=== PATIENT | male | born 1955 | race Caucasian/White ===

== ENCOUNTER → 2020-03-26 12:46 | Outpatient (BNVA) | payer OTHER, SELFPAY | PROVIDERS: Family Provider Nurse Practitioner; PCP Nurse Practitioner Family; Visit Provider Nurse Practitioner Family | DX: S80.02XA Contusion of left knee, initial encounter (principal); S89.92XA Unspecified injury of left lower leg, initial encounter; S79.912A Unspecified injury of left hip, initial encounter; S82.252A Displaced comminuted fracture of shaft of left tibia, initial encounter for closed fracture; X58.XXXA Exposure to other specified factors, initial encounter | CPT/HCPCS: 73502; 73552; 73562; 73590 ==

== ENCOUNTER 2020-03-28 13:23 | Outpatient (CLI) | payer OTHER, SELFPAY ==
--- NOTE | 2020-03-28 13:49 | CT_ITS ---
WS: [id number] NONCONTRAST CT OF THE LEFT KNEE WITH CORONAL AND SAGITTAL REFORMATTED IMAGES TECHNIQUE: Noncontrast CT of the left knee with coronal and sagittal reformatted images. CLINICAL INFORMATION: Tibial plateua fx COMPARISON: Radiograph March 26, 2020 DLP: 1232.[address] scans at [facility] use at least one of these dose optimization techniques: automat ed exposure control; mA and/or kV adjustment per patient size (includes targeted exams where dose is matched to clinical indication); or iterative reconstruction. FINDINGS: Again seen is the comminuted fracture involving the central and lateral tibial plateau extending to t he tibial spines. Depression of the tibial plateau fracture measuring approximately 3 mm. A few small fragments extend to the joint. Fibular head is normal in appearance. Moderate joint effusion. Additional small nondisplaced fracture involving the medial femoral condyle extending to the medial e picondyle. Nondisplaced fracture measures 2.1 x 2.0 CM. Patella appears normal. Additional tiny nondi splaced fracture involving the medial tibial plateau which does not appear to involve the articular s urface. Moderate suprapatellar effusion. CT/CT knee LT wo con* [id number] IMPRESSION: 1. Comminuted tibial plateau fracture extending from the tibial spines into th e lateral tibial plateau. 3 mm of depression. 2. A few small bony fragments extending slightly into the joint. 3. Additional nondisplaced 2.0 x 2.1 cm fracture involving the medial femoral condyle extending to the medial epicondyle. 4. Additional nondisplaced tiny fracture along the posterior tibial plateau no t involving the articular surface. 5. Moderate suprapatellar effusion.
== END 2020-03-28 13:24 | disposition home or self-care (01) ==
LOC: RADWPI 13:28
PROVIDERS: Family Provider Nurse Practitioner; PCP Nurse Practitioner Family; Visit Provider Orthopaedic Surgery
DX: S82.142B Displaced bicondylar fracture of left tibia, initial encounter for open fracture type I or II (principal); S72.435A Nondisplaced fracture of medial condyle of left femur, initial encounter for closed fracture; X58.XXXA Exposure to other specified factors, initial encounter; M25.462 Effusion, left knee
CPT/HCPCS: 73700

== ENCOUNTER 2020-03-28 14:41 | Outpatient (CLI) | payer OTHER, SELFPAY | END 2020-03-28 14:42 | disposition home or self-care (01) | LOC: SPT 14:42 | PROVIDERS: Family Provider Nurse Practitioner; PCP Nurse Practitioner Family; Visit Provider Orthopaedic Surgery | DX: Z46.89 Encounter for fitting and adjustment of other specified devices (principal); S82.142D Displaced bicondylar fracture of left tibia, subsequent encounter for closed fracture with routine healing; X58.XXXD Exposure to other specified factors, subsequent encounter | CPT/HCPCS: L1832 ==

== ENCOUNTER 2020-03-30 16:40 | Observation (INO) | payer OTHER, SELFPAY ==
[2020-03-29 16:59] VITALS: BMI 25.4
[2020-03-30] VITALS (24 sets, daily range): BP systolic 123–174; BP diastolic 69–96; PULSE 44–78; RESP 16–22; TEMP 36.3–37.1; O2SAT 92–97
--- NOTE | 2020-03-30 | XR_ITS ---
WS: [id number] C-ARM RADIOGRAPHS LEFT KNEE; 4 IMAGES HISTORY: ORIF LEFT KNEE COMPARISON: None available. Status post fixation proximal tibial plateau. Plate and screw fixation with fractures in good alignme nt. XR/XR knee LT 1-2V 75251 IMPRESSION: Status post ORIF tibial plateau fracture in good alignment.
--- NOTE | 2020-03-30 | SCC_ITS ---
Procedure Done: open reduction and internal fixation left lateral tibial plateau fracture with plate and screws 36.4 seconds of fluoroscopic guidance, for a cumulative dose of 1.75 mGy, was provided to Dr. Miranda by the radiology department. C-arm images of the LEFT knee were saved for the patient's permanent record. [facility]
--- NOTE | 2020-03-30 08:16 | W.PM.OPSUD ---
Surgery/Procedure H&P Update DATE OF PROCEDURE: March 30, 2020 DATE H&P PERFORMED: 03/28/20 H&P UPDATE INFORMATION: I have reviewed H&P completed within last 30 days PREOP DIAGNOSIS: Left lateral tibial plateau fracture PRIMARY INDICATION FOR PROCEDURE: Displaced and depressed left lateral tibial plateau fracture PLANNED PROCEDURE: Operation Date: 03/30/20 10:05 Proposed Procedures p ORIF Tibial Plateau 18235 S82.142A(Left) - Boston Miranda DO
--- NOTE | 2020-03-30 08:48 | ANES.PREANE2 ---
Pre-Anesthetic Assessment Pre-Anesthetic Assessment: Height/Weight: Height 1.8 m Weight 82.554 kg Preop Diagnosis: left lateral tibial plateau fracture Proposed Procedure: Operation Date: 03/30/20 10:05 Proposed Procedures p ORIF Tibial Plateau 76639 S82.142A(Left) - Boston Miranda DO Familial anesthetic complications: None Was Beta Fabian taken within 24 hours: N/A Social: Social History: Tobacco and No alcohol Exam: Pre-Anes Outpt Exam: alert, oriented x 3, clear to auscultation bilaterally and regular rate & rhythm Airway: Cervical ROM: WNL MP: 2 Dentition: False Additional comments: missing poor dentioin Pulmonary: Pulmonary: None reported CV/HEM: CV/HEM: None reported : : None reported Hepatic: Hepatic: None reported GI: GI: None reported Metabolic: Metabolic: None reported Musc/skel: Musc/skel: OA/DJD Comments: L knee Neuropsych: Neuropsych: None reported Anesthetic Plan: ASA status: 2 Anesthesia: General Risk of > 500 ml blood loss (7ml/kg in children): No PFSH Anesthesia PFSH: Medical History (Updated 03/29/20 @ 06:24 by Boston Miranda DO) Closed fracture of left tibial plateau Social History (Updated 03/28/20 @ 12:07 by Bhumi Larios LPN) Smoking and tobacco status: never smoked Alcohol intake: never 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
[2020-03-30] MEDS: sodium chloride 0.9% 1,000 ML 30 ML IV (09:18)
--- NOTE | 2020-03-30 09:40 | SUR.PREOP ---
DR ALEJANDRA INFORMED OF PT'S PULSE RATE. PT DENIES ANY SYMPTOMS.
[2020-03-30] MEDS: fentaNYL 50 mcg/mL INJ 2mL IVP ×2 (10:41→13:13)
--- NOTE | 2020-03-30 10:42 | SUR.PREOP ---
MEDICATED FOR LEG PAIN PER DR ALEJANDRA.
[2020-03-30] MEDS: cefUROXime 1,500 MG in sodium chloride 0.9% (plus) 50 ML 100 MG IV (11:32)
[2020-03-30] MEDS: lidocaine 1% INJ 20 mL SUBCUT (12:47)
--- NOTE | 2020-03-30 13:08 | SUR.PHASEI ---
1300 PATIENT TO PACU AT THIS TIME. RESTLESS, PATIENT REPOSITIONED, LEFT KNEE ELEVATED ON PILLOWS. FIRST ICE APPLIED. DRESSING TO LEFT KNEE, CDI WITH BRACE IN PLACE. PATIENT ON RA, SPO2 95%.
[2020-03-30] MEDS: morphine 4 mg/mL SDV 1 mL 2 MG IVP ×2 (13:21→13:25)
[2020-03-30] MEDS: HYDROmorphone 1 mg/mL INJ 1 mL 0.5 MG IVP (13:30)
--- NOTE | 2020-03-30 13:49 | SUR.PHASEI ---
4949 PATIENT TO OPS AT THIS TIME FROM OR. NO DISTRESS. PAIN IMPROVED. DENIES NAUSEA. TOLERATING ICE CHIPS. LEFT LEG ELEVATED, FIRST ICE IN PLACE.
--- NOTE | 2020-03-30 14:41 | SUR.PHASEII ---
PLAN OF CARE REVIEWED WITH PATIENT AND FAMILY.
--- NOTE | 2020-03-30 17:40 | SUR.PHASEII ---
1530 PATIENT TO [facility]. REPORT GIVEN TO NURSE AT BEDSIDE. PATIENT ASSISTED IN GETTING INTO BED. CALL LIGHT WITHIN REACH.
[2020-03-30] MEDS: docusate sodium 100 mg Capsule PO (19:23)
[2020-03-30] MEDS: acetaminophen 325 mg Tablet PO (19:35)
[2020-03-31] VITALS: BP 147/70; PULSE 60; RESP 18; TEMP 36.6; O2SAT 96
[2020-03-31 03:16] VITALS: PULSE 71; O2SAT 93
[2020-03-31 04:00] VITALS: BP 136/66; PULSE 70; RESP 16; TEMP 36.9; O2SAT 95
[2020-03-31 07:44] VITALS: BP 119/69; PULSE 52; RESP 17; TEMP 36.4; O2SAT 97
[2020-03-31] MEDS: acetaminophen 325 mg Tablet PO (08:06)
--- NOTE | 2020-03-31 16:18 | PC.OT ---
OT orders received. Attempted to perform OT eval at 14:00 on 03/31, however patient was already discharged from inpatient care. No OT services provided.
--- NOTE | 2020-04-03 09:29 | PM.DCS ---
Discharge Providers Date of Admission: 03/30/20 16:40 Date of Discharge: March 31, 2020 Attending Provider at Admission: Boston Miranda DO Attending Provider at Discharge: Boston Miranda DO Primary Care Provider: SEYMOUR Gonzalez Diagnoses at Discharge Discharge Diagnosis (1) Closed fracture of left tibial plateau: Status: Acute Qualifiers: Encounter type: initial encounter Qualified Code(s): S82.142A - Displaced bicondylar fracture of left tibia, initial encounter for closed fracture Reason for Visit Reason for Visit: Reason For Visit: Left lateral tibial plateau fx Brief History: 64-year-old white male who was injured while clearing fallen trees blocking road. A limb snapped back struck his left lower extremity. As result of the injury was knocked to the ground he sustained a depressed lateral tibial plateau fracture and a sprain of the medial collateral ligaments insertion on the medial aspect of the femoral condyle with a small nondisplaced fracture in this area he was seen in the orthopedic clinic. I recommended due to the fracture pattern that he undergo open reduction internal fixation of the lateral tibial plateau fracture prevent a large anterolateral portion from potentially displacing with weightbearing. Risks benefits and alternative treatments were discussed with the patient to include conservative treatment. Due to the fracture morphology this was not favored. The patient is agreeable to proceed with surgery. As the injury happened on the job and get permission from his Worker's Compensation insurance carrier. Also discussed with the patient that the surgery would not address any intra-articular potential derangements such as meniscal tearing or loose bodies for bone or cartilage that could benefit result of his fracture. I spent him that we would not perform an arthroscopic surgery at this point because the risk of putting fluid into the soft tissues that could lead to a compartment syndrome that could lead to loss of his limb. Rather she developed symptoms a later date consideration be given to performing diagnostic arthroscopy to deal with any intra-articular internal derangements. Patient was agreeable with this plan. Hospital Course Hospital Course: Patient underwent open reduction internal fixation of his lateral malleolus fracture. Prior to surgery the patient was adamant that he wanted to go home. In the recovery we also wanted to go home however he was having significant postoperative discomfort in that required as to the admit him for overnight observation and pain control. Patient required parenteral and oral medication overnight. The first day following surgery the patient was in good spirits. He states his pain was well-controlled and wanted to be discharged. Vital signs are stable is afebrile. He Is alert and cooperative. Lungs are clear to auscultation. Heart is regular rate rhythm. Abdomen soft nontender. His dressings are intact with no strikethrough, He is able to ambulate partial weightbearing on his left lower extremity in his immobilizer. Physical Exam Narrative: EXAM NARRATIVE: see hospital course Discharge Data Data Completed and Pending: Completed Studies During Hospitalization Category Date Time Status XR knee LT 1-2V 7 3560 Routine Exams 03/30/20 Completed Pending at discharge Category Date Time Status C-arm Fluoroscopy [id number] Routine Exams 03/30/20 08:33 Taken Vitals: Last Vital Signs Temp 97.6 F 03/31/20 07:44 Pulse 52 L 03/31/20 07:44 Resp 17 03/31/20 07:44 BP 119/69 03/31/20 07:44 Pulse Ox 97 03/31/20 07:44 Discharge Plan Discharge Patient Disposition: Home, Self-Care Condition: Stable Prescriptions: New oxycodone-acetaminophen 5-325 mg tablet 1 tab PO Q4H PRN (Reason: pain) Qty: 40 RF: 0 Continued acetaminophen [Tylenol] 325 mg capsule 325 mg PO QID PRN (Reason: Pain) RF: 0 ibuprofen 800 mg tablet 800 mg PO TID PRN (Reason: pain) 30 Days Qty: 90 RF: 0 (DME) ROYER BRACE See Rx Instructions .Route .MEDSUPPLY Qty: 1 RF: 0 Discharge Orders: Discharge Order (Routine); Ordered 03/30/20 Ordered By: Boston Miranda Referrals: MICHAEL Canseco FNP [Primary Care Provider] - (Call Thursday and make a hospital follow up appoinmtent with MICHAEL Canseco nurse practioner in 1 week.) Boston Miranda DO [Physician] - 04/13/20 9:15 am (Call Thursday and make a hospital follow up appointment for March at 9:15am with Dr. Miranda [facility].) Discharge Diet: Usual diet Discharge Activity: Limit activity as instructed and Use walker/crutches as instructed Patient Instructions: Oxycodone/Acetaminophen (By mouth), Open Reduction and Internal Fixation of a Leg Fracture (DC) Activity Restrictions/Additional Instructions: Keep splint on Keep splint and dressings clean and dry may perform ankle pumps, isometric contractions of calf and thigh muscles to decrease risk of blood clots. 5 pounds maximum weightbearing on left leg to prevent hardware from loosening or fracture moving. Ice and elevate left leg is much as possible. Take Percocet 1 every 4 hours as needed for pain. Is better to stay ahead of the pain and instead of waiting until the pain is too severe as it can be difficult for the oral pain medication to catch up to control your pain. Sponge bathing recommended. Crutch ambulation Wear long leg immobilizer when sleeping Print Language: Norwegian Discharge Date/Time: 03/31/20 11:00 Discharge Attestations Time Spent in Discharge Care*: less than 30 min Quality Metrics Clinical Quality Measures During this hospital stay, did patient experience: None Coding Level of Care Code Acute Medical Billing Specialist for Gordo Cuellar Diagnoses Closed fracture of left tibial plateau S82.142A Encounter type: initial encounter
--- NOTE | 2020-04-03 09:37 | PM.OP ---
Operative Report Date of procedure: March 30, 2020 Pre-op Diagnosis: left lateral tibial plateau fracture Post-op diagnosis: same Procedure Done: open reduction and internal fixation left lateral tibial plateau fracture with plate and screws Implants: [employer] proximal lateral tibial plateau plate and screws Pathology: none sent Surgeon: Boston Miranda Estimated blood loss (mL): 20 Tourniquet time (min): 69 (at 300 mmHg pressure) Complications: no apparent complications Findings: satisfactory placement of orthopedic implants stabilizing and buttressing lateral tibial plateau fracture fragments Condition: stable Disposition: PACU Brief History: 64-year-old white male who was injured while clearing fallen trees blocking road. A limb snapped back struck his left lower extremity. As result of the injury was knocked to the ground he sustained a depressed lateral tibial plateau fracture and a sprain of the medial collateral ligaments insertion on the medial aspect of the femoral condyle with a small nondisplaced fracture in this area he was seen in the orthopedic clinic. I recommended due to the fracture pattern that he undergo open reduction internal fixation of the lateral tibial plateau fracture prevent a large anterolateral portion from potentially displacing with weightbearing. Risks benefits and alternative treatments were discussed with the patient to include conservative treatment. Due to the fracture morphology this was not favored. The patient is agreeable to proceed with surgery. As the injury happened on the job and get permission from his Worker's Compensation insurance carrier. Also discussed with the patient that the surgery would not address any intra-articular potential derangements such as meniscal tearing or loose bodies for bone or cartilage that could benefit result of his fracture. I spent him that we would not perform an arthroscopic surgery at this point because the risk of putting fluid into the soft tissues that could lead to a compartment syndrome that could lead to loss of his limb. Rather if he developed symptoms a later date consideration be given to performing diagnostic arthroscopy to deal with any intra-articular internal derangements. Patient was agreeable with this plan Procedure: The patient was identified. The surgical site was signed. Surgical permit was signed. The patient received 1.5 g of Zinacef intravenously for surgical prophylaxis. He was taken back to the operating room. His placed supine on operating room table. His placed under general anesthesia without difficulty. A tourniquet was placed about the upper aspect of the left thigh. The patient is in sterilely prepped and draped usual fashion. A timeout was performed. The operative limb was exsanguinated using an Esmarch bandage the tourniquet inflated 300 mmHg pressure. A curvilinear incision beginning on the lateral aspect of the femur coursing obliquely and medially above the fibular head The joint line and then coursing obliquely and distally along the anterolateral aspect of the proximal tibial shaft. Full-thickness skin flaps were made using sharp knife dissection. Skin edge bleeders were coagulated electrocautery. Then incised the underlying fascia overlying the anterior compartment musculature the anterior compartment musculature was then raised off of the underlying tibia and tibial shaft. Retractors were put into place. Then identified the fracture site. We mobilized the fracture site and then positioned a [place] [employer] periarticular proximal lateral tibial plate in place and pinned into position proximally and distally. We placed a cortical screw in the shaft to compress the plate and also to apply pressure on the anterolateral aspect of the proximal fibula. This acted as a buttress mechanism. We then put a series of locking screws in the proximal screw holes of the plate as well as an oblique kickstand screw. Additional locking screws were placed in the shaft. Fluoroscopic imaging demonstrated satisfactory placement of implants without apparent complication of both AP and lateral images. Overall alignment of the lateral tibial plateau fracture fragments appear acceptable. This time the incision was irrigated with Betadine-containing solution followed by antibiotic containing saline solution. The fascial layer over the anterior compartment musculature was closed loosely with 0 Vicryl subcutaneous closure with interrupted sutures of undyed Vicryl and aziza were used on skin. The incision area was injected 20 mL of one-to-one mixture 1% lidocaine with epinephrine half percent Marcaine. Antibiotic ointment was applied to the incision line followed by application of sterile dressings web roll and then a Jason wrap. The patient placed in a knee immobilizer with the knee in extension. The tourniquet was deflated during application of dressings. The patient was aroused from general anesthesia. He was taken to recovery room. He tolerated surgery well. All counts are correct.
== END 2020-03-31 11:00 | disposition home or self-care (01) ==
LOC: MEDSURG 03-31 08:15
PROVIDERS: Admitting Provider Orthopaedic Surgery; PCP Nurse Practitioner Family; Visit Provider Orthopaedic Surgery
PROC: (CPT 27536; principal; 2020-03-30 09:45)
DX: S82.142A Displaced bicondylar fracture of left tibia, initial encounter for closed fracture (principal); W22.8XXA Striking against or struck by other objects, initial encounter; M17.12 Unilateral primary osteoarthritis, left knee
CPT/HCPCS: 27536; 12345; 73560; 76000; 96361; 96365; 97161; C1713; G0378; J0131; J0330; J0697; J1100; J1170; J1580; J2001; J2270; J2405; J2704; J3010; J3490; J7030

== ENCOUNTER → 2020-04-13 09:46 | Outpatient (BNVA) | payer OTHER, SELFPAY | PROVIDERS: PCP Nurse Practitioner Family; Visit Provider Orthopaedic Surgery | DX: S82.142A Displaced bicondylar fracture of left tibia, initial encounter for closed fracture (principal); X58.XXXA Exposure to other specified factors, initial encounter | CPT/HCPCS: 73560; 73610 ==

== ENCOUNTER → 2020-05-09 09:57 | Outpatient (BNVA) | payer OTHER, SELFPAY | PROVIDERS: PCP Nurse Practitioner Family; Visit Provider Orthopaedic Surgery | DX: S82.142A Displaced bicondylar fracture of left tibia, initial encounter for closed fracture (principal); M25.572 Pain in left ankle and joints of left foot; X58.XXXA Exposure to other specified factors, initial encounter | CPT/HCPCS: 73560 ==

== ENCOUNTER → 2020-05-24 08:07 | Outpatient (BNVA) | payer OTHER, SELFPAY | PROVIDERS: PCP Nurse Practitioner Family; Visit Provider Orthopaedic Surgery | DX: S82.142A Displaced bicondylar fracture of left tibia, initial encounter for closed fracture (principal); X58.XXXA Exposure to other specified factors, initial encounter | CPT/HCPCS: 73562 ==

== ENCOUNTER 2021-02-05 11:35 | Observation (INO) | payer BC, SELFPAY ==
[2021-02-05] VITALS (11 sets, daily range): BP systolic 125–147; BP diastolic 66–83; PULSE 45–69; RESP 16–27; TEMP 36.1–36.9; O2SAT 93–99; BMI 25.7
--- NOTE | 2021-02-05 11:52 | XRR_ITS ---
PROCEDURE INFORMATION: Exam: XR Chest Exam date and time: 02/05/2021 12:54 PM Age: 65 years old Clinical indication: Dyspnea and shortness of breath; Chest pain; Type not specified; Patient HX: SOB, constantly getting worse over the last 6 months; Additional info: Cp/dyspnea TECHNIQUE: Imaging protocol: XR of the chest Views: 1 view. COMPARISON: No relevant prior studies available. FINDINGS: Lungs: Unremarkable. No consolidation. Pleural spaces: Unremarkable. No pleural effusion. No pneumothorax. Heart/Mediastinum: Unremarkable. No cardiomegaly. Bones/joints: Unremarkable. XR/XR chest 1V portable [id number] IMPRESSION: No acute findings.
[2021-02-05 12:06] LABS: Basophils # 0.1 10^3/uL (0.0-0.1); Basophils % 0.6 %; Eosinophils # 0.2 10^3/uL (0.0-0.8); Eosinophils % 1.8 %; Hematocrit 47.1 % (42.0-52.0); Hemoglobin 15.6 g/dL (11.7-16.6); Lymphocytes # 2.5 10^3/uL (0.8-4.8); Lymphocytes % 30.7 %; Mean Corpuscular HGB Conc 33.1 g/dL (30.0-36.0); Mean Corpuscular Hemoglobin 30.6 pg (28.0-34.0); Mean Corpuscular Volume 92.5 fL (80-94); Mean Platelet Volume 9.7 fL (7.4-10.4); Monocytes # 0.7 10^3/uL (0.2-0.9); Monocytes % 7.9 %; Neutrophils # 4.79 10^3/uL (1.8-7.7); Neutrophils % 58.6 %; Nucleated Red Blood Cells % 0 %; Platelet Count 281 10^3/cmm (130-400); Red Blood Count 5.09 10^6/uL (4.1-5.3); Red Cell Distribution Width 11.9 % (12.1-15.1); White Blood Count 8.2 10^3/uL (4.0-10.0)
--- NOTE | 2021-02-05 12:10 | ED_ITS ---
HPI - Chest Pain General: Chief Complaint: Chest Pain Stated Complaint: SOB X 2-3 WKS, CP L SIDE Time Seen by Provider: 02/05/21 11:52 History of Present Illness: HPI narrative: The patient is a 65-year-old male who comes to the ER complaining of left-sided chest pressure and shortness of breath increasing for the past 2 to 3 weeks. He says he has had several episodes since this morning and they last approximately 1 minute of chest pain however it quickly goes away. He says he can get short of breath even while he is sitting still. No previous history of cardiac disease. He denies recent illness other than a vomiting episode a couple days ago. Denies cough and fevers. He went to his primary care office this morning who saw him and sent him to the ER for evaluation of chest pain. He says at the moment he is having a light pressure but not a severe pain like he has had at home. He was given 4 baby aspirin by EMS. I offered him nitroglycerin and he declined he says even the smell of it gives him a headache. I discussed with him it could improve his chest pain and pressure and reduce the severity of an OR and he said at this point he does not want it unless his pain becomes severe. MD complaint: chest pain and chest heaviness Timing of current episode: daily Prior episodes: Yes Onset: during rest and during exertion Pain location: left chest Pain radiation: left arm and left shoulder Severity: moderate Quality: tightness and heaviness Relieving factors: nothing Exacerbating factors: exertion Associated symptoms: Reports dyspnea; Deny abdominal pain or palpitations Review of Systems General: Reports: 10 or more systems reviewed and unremarkable except in HPI and below Const: Denies: fatigue Eyes: Denies: change in vision, blurry vision or eye redness ENMT: Denies: throat pain, swelling of lips/tongue, ear or mastoid pain or nasal congestion Card: Reports: chest pain; Denies: palpitations, irregular heart rhythm, edema, dyspnea on exertion or orthopnea Resp: Reports: dyspnea; Denies: productive cough or non-productive cough GI: Denies: abdominal pain, diarrhea or GI cramping : Denies: flank pain, urinary frequency or urinary urgency Musc: Denies: neck pain, back pain, extremity pain, joint pain, joint redness, limited range of motion or muscle weakness Skin/Breast: Denies: rash, pruritus, erythema, skin pain or skin tenderness Neuro: Denies: headache(s), numbness in extremities, weakness in extremities, sensory changes, difficulty walking, dizziness, confusion or Slurred speech present Psych: Denies: anxiety or depression Endo: Denies: polyuria All/Imm: Denies: urticaria, throat swelling or tongue swelling PFSH ED PFSH: Medical History (Updated 02/05/21 @ 15:02 by Michael Estrada MD) Chest pain Chest pain Closed fracture of left tibial plateau Dizziness Fatigue Hypertension screen Medication management Otitis media Prostate cancer screening Shortness of Breath Soft tissue infection Weakness Social History Smoking and tobacco status: never smoked Alcohol intake: never 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 [employer] Physical Exam Const: COMMON NORMALS: no acute distress, average body habitus, patient oriented x3, no limitations, healthy appearing, alert and well nourished GENERAL APPEARANCE: cooperative, comfortable, well kempt and well developed ORIENTATION/CONSCIOUSNESS: Yes awake, Yes oriented to person, Yes oriented to place and Yes oriented to time HENMT: COMMON NORMALS: normocephalic, external ears normal and Normal external nose present HEAD & SCALP: normal to inspection and normocephalic NOSE: Normal external nose present EXTERNAL EAR: Yes external ears normal MOUTH: Normal oral and palatal mucosa present THROAT: posterior oropharynx normal Eye: COMMON NORMALS: Equal, round and reactive pupils present and EOMs intact bilaterally GENERAL EYE: appearance normal, both eyes and all related structures PUPIL: Yes Equal, round and reactive pupils present Neck/C-Spine: COMMON NORMALS: full ROM, no lymphadenopathy, no meningeal signs and no JVD GENERAL: Yes normal visual inspection Lymph: LYMPHATIC: no lymphadenopathy noted Chest: COMMONS NORMALS: normal inspection of the chest and normal palpation of entire chest wall Resp: COMMON NORMALS: normal respiratory effort, No retractions, No use of accessory muscles, clear to auscultation bilaterally and percussion normal EFFORT & INSPECTION: Yes able to speak in complete sentences AUSCULTATION: clear to auscultation bilaterally PERCUSSION: percussion normal Cardio: COMMON NORMALS: no JVD, regular rate, regular rhythm, S1 normal heart sound present, S2 normal heart sound present and Peripheral pulses 2+ throughout RATE: regular rate RHYTHM: regular rhythm HEART SOUNDS: S1 normal heart sound present and S2 normal heart sound present PERIPHERAL PULSES: Peripheral pulses 2+ throughout GI: COMMON NORMALS: Normal to inspection, nondistended, normoactive bowel sounds present, Soft to palpation, non-tender and no masses INSPECTION: Yes normal to inspection PALPATION: Yes Soft to palpation : COMMON NORMALS: Yes no CVA tenderness BLADDER/KIDNEY EXAM: Yes no CVA tenderness Back/Pelvis: COMMON NORMALS: no CVA tenderness, thoracic and lumbar spine normal to inspection, no thoracic nor lumbar tenderness and thoraco-lumbar ROM normal Extremity: COMMON NORMALS: normal to inspection, full ROM, capillary refill normal, no joint enlargement and no pedal edema GENERAL: Yes normal exam except as noted Neuro: COMMON NORMALS: patient oriented x3, CN's II-XII intact bilaterally, moves all extremities, no focal motor deficits, no sensory deficits noted and gait normal SENSORIUM/ORIENTATION: Yes alert, Yes oriented to person, Yes oriented to place and Yes oriented to time MENINGEAL SIGNS: Yes no meningeal signs Psych: COMMON NORMALS: mental status grossly normal, Normal thought process present, cooperative, normal affect and speech normal APPEARANCE: Yes well kempt ATTITUDE: Yes calm SPEECH: Yes normal speech THOUGHT PROCESS: Normal thought process present Skin: COMMON NORMALS: no rashes or lesions noted GENERAL SKIN EXAM: no rashes or lesions noted Course Vital Signs: Vital signs: Vital Signs Temperature 97.8 F 02/05/21 11:48 Pulse Rate 53 L 02/05/21 14:05 Respiratory Rate 26 H 02/05/21 14:05 Blood Pressure 125/74 02/05/21 14:05 Pulse Oximetry 97 02/05/21 14:05 MDM - Chest Pain MDM Narrative: Medical decision making narrative: The patient is a 65-year-old male complaining of typical left-sided chest pressure and pain. He is refusing nitroglycerin. Troponin x2 and EKG x2 are normal except it does show sinus bradycardia in the mid to low 40s. He continues to have pressure on the left side. He was given aspirin prior to arrival. Discussed with Dr. Vidales who will consult on this patient and see him upstairs. Discussed with Dr. Portillo who accepts for observation Lab Data: Labs: Lab Results 02/05/21 02/05/21 02/05/21 Range/Units 10:36 10:36 10:36 WBC 8.2 (4.0-10.0) 10^3/ uL RBC 5.09 (4.1-5.3) 10^6/u L Hgb 15.6 (11.7-16.6) g/dL Hct 47.1 (42.0-52.0) % MCV 92.5 (80-94) fL MCH 30.6 (28.0-34.0) pg MCHC 33.1 (30.0-36.0) g/dL RDW 11.9 L (12.1-15.1) % Plt Count 281 (130-400) 10^3/c mm MPV 9.7 (7.4-10.4) fL Neut % (Auto) 58.6 % Lymph % (Auto) 30.7 % Morrison % (Auto) 7.9 % Eos % (Auto) 1.8 % Baso % (Auto) 0.6 % Neut # (Auto) 4.79 (1.8-7.7) 10^3/u L Lymph # (Auto) 2.5 (0.8-4.8) 10^3/u L Morrison # (Auto) 0.7 (0.2-0.9) 10^3/u L Eos # (Auto) 0.2 (0.0-0.8) 10^3/u L Baso # (Auto) 0.1 (0.0-0.1) 10^3/u L Nucleated RBC % (a uto) 0 % Nucleated RBCs # 0.0 /100WBC D-Dimer 0.29 (0-0.59) ug/mIFE U Sodium 136 (136-145) mmol/L Potassium 4.4 (3.5-5.1) mmol/L Chloride 102 (98-107) mmol/L Carbon Dioxide 24 (22-29) mmol/L Anion Gap 14.4 (5-19) BUN 12 (8-23) mg/dL Creatinine 0.8 (0.7-1.2) mg/dL GFR Calculation 97.6 (90-130) mL/min Glucose 86 (65-115) mg/dL Calculated Osmolal ity 281 L (285-295) mOsm/k g Calcium 9.2 (8.5-10.5) mg/dL Total Bilirubin 0.5 (0.15-1.2) mg/dL AST 16 (0-40) U/L ALT 21 (0-41) U/L Alkaline Phosphata se 46 (40-130) IU/L Troponin T Baselin e (0-15) ng/L Troponin T 120 Min [place] (0-15) ng/L Delta Troponin T (0-10) ABS# NT-Pro-B Natriuret Pep 45 (0-125) pg/mL Total Protein 7.3 (6.6-8.7) g/dL Albumin 4.4 (3.5-5.2) g/dL Globulin 2.9 (1.3-4.6) g/dL Urine Color (Yellow) Urine Appearance (CLEAR) Urine pH (5-7) Ur Specific Gravit y (1.005-1.030) Urine Protein (Negative) Urine Glucose (UA) (Normal) Urine Ketones (Negative) Urine Blood (Negative) Urine Nitrate (Negative) Urine Bilirubin (Negative) Urine Urobilinogen (Negative) mg/dL Ur Leukocyte Linda ase (Negative) 02/05/21 02/05/21 02/05/21 Range/Units 10:36 12:19 12:25 WBC (4.0-10.0) 10^3/ uL RBC (4.1-5.3) 10^6/u L Hgb (11.7-16.6) g/dL Hct (42.0-52.0) % MCV (80-94) fL MCH (28.0-34.0) pg MCHC (30.0-36.0) g/dL RDW (12.1-15.1) % Plt Count (130-400) 10^3/c mm MPV (7.4-10.4) fL Neut % (Auto) % Lymph % (Auto) % Morrison % (Auto) % Eos % (Auto) % Baso % (Auto) % Neut # (Auto) (1.8-7.7) 10^3/u L Lymph # (Auto) (0.8-4.8) 10^3/u L Morrison # (Auto) (0.2-0.9) 10^3/u L Eos # (Auto) (0.0-0.8) 10^3/u L Baso # (Auto) (0.0-0.1) 10^3/u L Nucleated RBC % (a uto) % Nucleated RBCs # /100WBC D-Dimer (0-0.59) ug/mIFE U Sodium (136-145) mmol/L Potassium (3.5-5.1) mmol/L Chloride (98-107) mmol/L Carbon Dioxide (22-29) mmol/L Anion Gap (5-19) BUN (8-23) mg/dL Creatinine (0.7-1.2) mg/dL GFR Calculation (90-130) mL/min Glucose (65-115) mg/dL Calculated Osmolal ity (285-295) mOsm/k g Calcium (8.5-10.5) mg/dL Total Bilirubin (0.15-1.2) mg/dL AST (0-40) U/L ALT (0-41) U/L Alkaline Phosphata se (40-130) IU/L Troponin T Baselin e 6 (0-15) ng/L Troponin T 120 Min [place] 6.00 (0-15) ng/L Delta Troponin T 0 (0-10) ABS# NT-Pro-B Natriuret Pep (0-125) pg/mL Total Protein (6.6-8.7) g/dL Albumin (3.5-5.2) g/dL Globulin (1.3-4.6) g/dL Urine Color Straw (Yellow) Urine Appearance Clear (CLEAR) Urine pH 5 (5-7) Ur Specific Gravit y 1.005 (1.005-1.030) Urine Protein Neg (Negative) Urine Glucose (UA) Norm (Normal) Urine Ketones Negative (Negative) Urine Blood Neg (Negative) Urine Nitrate Negative (Negative) Urine Bilirubin Neg (Negative) Urine Urobilinogen Norm (Negative) mg/dL Ur Leukocyte Linda ase Negative (Negative) Discharge Plan Discharge Patient Disposition: Placed in Observation Clinical Impression: Chest pain, Bradycardia, sinus Coding Level of Care Code ED 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
[2021-02-05 12:28] LABS: D Dimer 0.29 ug/mIFEU (0-0.59)
[2021-02-05 12:41] LABS: Troponin(5th) Baseline 6 ng/L (0-15)
[2021-02-05 12:47] LABS: Add Urine Microscopic? NO
[2021-02-05 12:50] LABS: Alanine Aminotransferase 21 U/L (0-41); Albumin Level 4.4 g/dL (3.5-5.2); Alkaline Phosphatase 46 IU/L (40-130); Anion Gap 14.4 (5-19); Aspartate Amino Transferase 16 U/L (0-40); Blood Urea Nitrogen 12 mg/dL (8-23); Calcium 9.2 mg/dL (8.5-10.5); Carbon Dioxide 24 mmol/L (22-29); Chloride 102 mmol/L (98-107); Globulin 2.9 g/dL (1.3-4.6); Glomerular Filtration Rate 97.6 mL/min (90-130); Glucose 86 mg/dL (65-115); NT Pro B Type Natriuretic Pept 45 pg/mL (0-125); Osmolality Calculated 281 mOsm/kg (285-295); Potassium 4.4 mmol/L (3.5-5.1); Sodium 136 mmol/L (136-145); Total Bilirubin 0.5 mg/dL (0.15-1.2); Total Protein 7.3 g/dL (6.6-8.7)
[2021-02-05 12:51] LABS: Bilirubin Urine Neg (Negative); Blood Urine Neg (Negative); Glucose Urine UA Norm (Normal); Ketones Urine Negative (Negative); Leukocyte Esterase Urine Negative (Negative); Nitrate Urine Negative (Negative); Protein Urine Neg (Negative); Specific Gravity, Urine 1.005 (1.005-1.030); Urine Appearance Clear (CLEAR); Urine Color Straw (Yellow); Urobilinogen Urine Norm (Negative); pH Urine 5 (5-7)
[2021-02-05 12:52] LABS: Troponin 5 2HR Delta 0 ABS# (0-10)
[2021-02-05] MEDS: albuterol 8 gm MDI 2 PUFF INHALATION (13:37)
--- NOTE | 2021-02-05 13:52 | ECG_ITS ---
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 Measurements Intervals [place] Rate: 41 P: 31 AL: 166 QRS: 8 QRSD: 100 T: 21 QT: 459 QTc: 383 Interpretive Statements SINUS BRADYCARDIA No previous ECG available for comparison Electronically Signed On 02-05-2021 20:24:01 CDT by Criselda Guzman M.D. [id number]
--- NOTE | 2021-02-05 14:00 | CT_ITS ---
WS: [id number] CT CHEST ANGIOGRAPHY WITH REFORMATS HISTORY: dyspnea TECHNIQUE: Contiguous axial images are obtained through the chest during arterial injection of intrav enous contrast. Images are reconstructed to evaluate the pulmonary arteries. MIP imaging also reviewe d. All CT scans at [facility] use at least one of these dose optimization techniques: aut omated exposure control; mA and/or kV adjustment per patient size (includes targeted exams where dose is matched to clinical indication); or iterative reconstruction. CONTRAST: Omnipaque 350; 95 mL IV. DLP: 571.69 mGy.cm COMPARISON: None available. Very good opacification of the pulmonary arteries. No pulmonary emboli are identified to the segmenta l branches. Pulmonary artery is normal size. No RIGHT heart strain. Mild atherosclerosis aorta with n o aneurysm. Moderate enlargement the heart chambers. No pericardial or pleural effusions. Very mild groundglass attenuation throughout both lungs suggesting a small amount of fluid overload a nd edema. No mediastinal or hilar adenopathy. Small hiatal hernia. Mild hepatic steatosis. Exophytic mass from the mid posterior LEFT kidney measures 2.3 cm. No obstruction of the kidneys. Nor mal adrenal glands. Prior RIGHT clavicle fracture with healing. CT/CT angio chest PE protcl [id number] IMPRESSION: 1. No pulmonary embolism. 2. Moderate cardiomegaly. 3. 2.3 cm LEFT renal mass. Recommend follow-up renal ultrasound to evaluate fo r cyst or solid mass. 4. Mild pulmonary congestion.
[2021-02-05] MEDS: iohexol 350 mg/mL 100 mL Btl IV (15:20)
--- NOTE | 2021-02-05 15:46 | PM.HP ---
Providers/Chief Complaint Admitting Physician: Ted Reeves MD Primary Care Provider: SEYMOUR Gonzalez Chief Complaint: SOB X 2-3 WKS, CP L SIDE History of Present Illness Reginald Nam is a 65 year old male with no significant past medical history, who presents to [facility] from the [facility] due to complaints of shortness of breath and chest pain. Patient tells me that he is fairly healthy, fairly physically active, for the last 2 weeks he has been experiencing increased shortness of breath and chest pain. He tells me that the shortness of breath mainly started off with exertion, he felt winded, which progressed to now shortness of breath sometimes at rest. He tells me that with the shortness of breath he will get chest pain, tells me that the chest pains almost like a charley horse in his chest, nonradiating, does have lightheadedness, no diaphoresis, no nausea, no vomiting, he tells me that the charley horse feeling has become much more frequent along with the shortness of breath. Denies any smoking. No history of drug use. No personal or family history of CAD. No history of diabetes. No history of chest pain in the past. Here in the emergency room, patient was noted to have sinus bradycardia, no acute ST-T wave changes on EKG, troponins with no significant delta, no episodes of chest pain while he was in the emergency room, saturating high 90s on room air, CT angiogram did not show any pulmonary emboli. Hospitalist team was called for admission for chest pain evaluation. Review of Systems Const: Denies: fever(s), chills, fatigue or malaise Eyes: Denies: change in vision or blurry vision ENMT: Denies: nasal congestion Card: Reports: chest pain Resp: Reports: dyspnea; Denies: productive cough, non-productive cough or wheezing GI: Denies: abdominal pain, nausea, vomiting, hematemesis, diarrhea, constipation, hematochezia or melena : Denies: flank pain, difficulty urinating, dysuria or urinary frequency Musc: Denies: neck pain or back pain Skin/Breast: Denies: rash Neuro: Denies: headache(s), dizziness or vertigo Psych: Denies: anxiety or depression Endo: Denies: polyuria or polydipsia Medications/Allergies Home Medications Medication Instructions Recorded Confirmed Last Taken Type amoxicillin 875 mg tablet 875 mg PO BID 10 Days #20 tab 02/05/21 02/05/21 Unknown Rx Allergies Allergy/AdvReac Type Severity Reaction Status Date / Time No Known Allergies Allergy Verified 02/05/21 08:13 PFSH Acute PFSH: Medical History (Updated 02/05/21 @ 15:49 by Ted Reeves MD) Chest pain Chest pain Closed fracture of left tibial plateau Dizziness Fatigue Hypertension screen Medication management Otitis media Prostate cancer screening Shortness of Breath Soft tissue infection Weakness Surgical History (Updated 02/05/21 @ 15:48 by Ted Reeves MD) H/O right knee surgery History of hernia repair Family History (Updated 02/05/21 @ 15:48 by Ted Reeves MD) Father Diabetes Brother Asthma Social History Smoking and tobacco status: never smoked Alcohol intake: never 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 [employer] Vitals/I&O/Wt Last Vital Signs Temp 97.8 F 02/05/21 11:48 Pulse 46 L 02/05/21 15:35 Resp 20 H 02/05/21 15:35 BP 134/73 02/05/21 15:35 Pulse Ox 98 02/05/21 15:35 Weight last 48 hrs Weight 83.915 kg Physical Exam Const: COMMON NORMALS: no acute distress and patient oriented x3 GENERAL APPEARANCE: cooperative and comfortable HENMT: COMMON NORMALS: normocephalic HEAD & SCALP: normocephalic Eye: COMMON NORMALS: Equal, round and reactive pupils present and EOMs intact bilaterally GENERAL EYE: appearance normal, both eyes and all related structures PUPIL: Yes Equal, round and reactive pupils present Neck/C-Spine: COMMON NORMALS: full ROM, no lymphadenopathy, no JVD and Thyroid normal THYROID: Thyroid normal Lymph: LYMPHATIC: no lymphadenopathy noted Resp: COMMON NORMALS: normal respiratory effort, No retractions, No use of accessory muscles and clear to auscultation bilaterally AUSCULTATION: clear to auscultation bilaterally Cardio: COMMON NORMALS: no JVD, regular rate, regular rhythm, S1 normal heart sound present, S2 normal heart sound present, No gallops present (Cardio), No clicks present (Cardio) and No murmurs present (Cardio) RATE: regular rate RHYTHM: regular rhythm HEART SOUNDS: S1 normal heart sound present and S2 normal heart sound present GI: COMMON NORMALS: Normal to inspection, nondistended, normoactive bowel sounds present, Soft to palpation, non-tender and No hepatosplenomegaly present PALPATION: Yes Soft to palpation and Yes No hepatosplenomegaly present Extremity: COMMON NORMALS: normal to inspection, full ROM and no pedal edema Neuro: COMMON NORMALS: patient oriented x3, CN's II-XII intact bilaterally, moves all extremities and no focal motor deficits Psych: COMMON NORMALS: mental status grossly normal, Normal thought process present and cooperative THOUGHT PROCESS: Normal thought process present Data : 02/05/21 10:36 02/05/21 10:36 A&P Assessment and plan (1) Chest pain: Plan: -Admit to general medical floors -Aspirin, statin, nitro for chest pain -Hold off on beta-ian given sinus bradycardia -Telemetry monitoring, serial EKGs, serial troponins -Monitor for chest pain -A1c, lipid panel -Cardiac echo -N.p.o. 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
--- NOTE | 2021-02-05 17:02 | PM.CONSULT ---
Providers/Reason For Consult Consulting Physican/Specialty*: Dawood Vidales MD/ Cardiology Reason for Consult*: Chest pain Requesting Physcian: Dr Estrada Attending Physician: Ted Reeves MD Primary Care Provider: SEYMOUR Gonzalez History of Present Illness History of Present Illness Reginald Nam is a 65 year old male with no significant cardiac history presented to the ER with complaints of chest pain and shortness of breath. According to patient he was in his usual state of health when about 2 weeks ago, he has started noticing chest pain and SOB. It is intermittent. Some radiation to neck and jaw noted. He is now not able to do any physical activity without getting short of breath. Patient's EKG shows sinus bradycardia. His initial troponin x2 are negative. CTA done to rule out PE, showed enlarged heart. Review of Systems General: Reports: 10 or more systems reviewed and unremarkable except in HPI and below Card: Reports: chest pain Resp: Reports: dyspnea and chest congestion Meds/Allergies Home Medications and Allergies Home Medications Medication Instructions Recorded Confirmed Last Taken Type amoxicillin 875 mg tablet 875 mg PO BID 10 Days #20 tab 02/05/21 02/05/21 Unknown Rx Allergies Allergy/AdvReac Type Severity Reaction Status Date / Time No Known Allergies Allergy Verified 02/05/21 08:13 PFSH Acute PFSH: Medical History Chest pain Chest pain Closed fracture of left tibial plateau Dizziness Fatigue Hypertension screen Medication management Otitis media Prostate cancer screening Shortness of Breath Soft tissue infection Weakness Surgical History H/O right knee surgery History of hernia repair Family History Father Diabetes Brother Asthma Social History Smoking and tobacco status: never smoked Alcohol intake: never 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 [employer] Vitals/I&O/Wt Last Vital Signs Temp 97.8 F 02/05/21 11:48 Pulse 51 L 02/05/21 15:50 Resp 17 02/05/21 15:50 BP 134/73 02/05/21 15:50 Pulse Ox 99 03/23/21 15:50 Weight last 48 hrs Weight 185 lb Physical Exam Const: COMMON NORMALS: no acute distress and patient oriented x3 GENERAL APPEARANCE: cooperative and comfortable HENMT: COMMON NORMALS: normocephalic HEAD & SCALP: normocephalic Eye: COMMON NORMALS: Equal, round and reactive pupils present and EOMs intact bilaterally GENERAL EYE: appearance normal, both eyes and all related structures PUPIL: Yes Equal, round and reactive pupils present Neck/C-Spine: COMMON NORMALS: full ROM, no lymphadenopathy, no JVD and Thyroid normal THYROID: Thyroid normal Lymph: LYMPHATIC: no lymphadenopathy noted Resp: COMMON NORMALS: normal respiratory effort, No retractions, No use of accessory muscles and clear to auscultation bilaterally AUSCULTATION: clear to auscultation bilaterally Cardio: COMMON NORMALS: no JVD, regular rate, regular rhythm, S1 normal heart sound present, S2 normal heart sound present, No gallops present (Cardio), No clicks present (Cardio) and No murmurs present (Cardio) RATE: regular rate RHYTHM: regular rhythm HEART SOUNDS: S1 normal heart sound present and S2 normal heart sound present GI: COMMON NORMALS: Normal to inspection, nondistended, normoactive bowel sounds present, Soft to palpation, non-tender and No hepatosplenomegaly present PALPATION: Yes Soft to palpation and Yes No hepatosplenomegaly present Extremity: COMMON NORMALS: normal to inspection, full ROM and no pedal edema Neuro: COMMON NORMALS: patient oriented x3, CN's II-XII intact bilaterally, moves all extremities and no focal motor deficits Psych: COMMON NORMALS: mental status grossly normal, Normal thought process present and cooperative THOUGHT PROCESS: Normal thought process present A&P Assessment and plan (1) Chest pain: Status: Acute (2) Shortness of Breath: Status: Acute Patient had a recent onset of shortness of breath and chest pain. Symptoms are typical concerning for unstable angina. Patient unable to do any activities without getting significant symptoms. CTA shows enlarged heart. Trend troponin We will proceed with coronary angiogram to rule out coronary artery disease. Risks and benefits of the procedure discussed with the patient including bleeding, infection, abnormal heart rhythm, kidney function worsening,heart attack, stroke and . Patient understands the risks and benefits and wants to proceed with the procedure. NPO past midnight Aspirin Order echocardiogram Thank you for involving us with care of this patient. We will continue to follow. 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
--- NOTE | 2021-02-05 17:52 | ECG_ITS ---
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 Measurements Intervals [place] Rate: 61 P: -74 OR: 130 QRS: 32 QRSD: 101 T: 45 QT: 406 QTc: 410 Interpretive Statements JUNCTIONAL/ectopic atrial RHYTHM POSSIBLE ANTERIOR MYOCARDIAL INFARCTION [30 ms Q WAVE IN V3/V4, OR R < 0.2 mV IN V4], PROBABLY OLD ABNORMAL RHYTHM ECG Compared to ECG 02/05/2021 14:17:26 Junctional rhythm now present Myocardial infarct finding now present Sinus bradycardia no longer present Electronically Signed On 02-05-2021 20:25:02 CDT by Criselda Guzman M.D. [id number]
[2021-02-05] MEDS: atorvastatin 40 mg Tablet PO (18:08)
[2021-02-05] MEDS: famotidine 20 mg Tablet PO (18:08)
[2021-02-05] MEDS: enoxaparin 40 mg/0.4 mL Syringe SUBCUT (18:10)
--- NOTE | 2021-02-05 19:52 | PC.NURSE ---
Received report from Mdaiha Canchola RN. Patient up to bathroom. Ambulates ad luz. Telemetry in place. Discussed plan for LHC on 02/06. Patient verbalized understanding. SCDs in place and working. Patient reports really liking those leg massagers.
[2021-02-05 21:12] LABS: Troponin 5 6HR 6 ng/L (0-15); Troponin 5 6HR Delta 0 ng/L (0-12)
[2021-02-06] VITALS (27 sets, daily range): BP systolic 101–138; BP diastolic 60–84; PULSE 45–72; RESP 13–27; TEMP 36.6–36.8; O2SAT 91–97
[2021-02-06 04:58] LABS: Basophils # 0.1 10^3/uL (0.0-0.1); Basophils % 0.8 %; Eosinophils # 0.3 10^3/uL (0.0-0.8); Eosinophils % 3.7 %; Hematocrit 44.5 % (42.0-52.0); Hemoglobin 14.8 g/dL (11.7-16.6); Lymphocytes # 2.7 10^3/uL (0.8-4.8); Lymphocytes % 35.3 %; Mean Corpuscular HGB Conc 33.3 g/dL (30.0-36.0); Mean Corpuscular Volume 93.1 fL (80-94); Mean Platelet Volume 9.6 fL (7.4-10.4); Monocytes # 0.8 10^3/uL (0.2-0.9); Monocytes % 9.9 %; Nucleated Red Blood Cells % 0 %; Platelet Count 259 10^3/cmm (130-400); Red Blood Count 4.78 10^6/uL (4.1-5.3); Red Cell Distribution Width 11.9 % (12.1-15.1); White Blood Count 7.6 10^3/uL (4.0-10.0)
--- NOTE | 2021-02-06 05:00 | USCV_ITS ---
Reginald Nam Age: 65 Gender: M : 1955 Exam Date: 02/06/2021 06:09 Ordering Phys: Ted Reeves MD Technologist: Christel Riley Exam Location: [facility] [place] Indication: SOB BP: 126 / 84 HR: 54 Rhythm: Sinus Technical Quality: Adequate MEASUREMENTS (Male / Female) Normal Values 2D ECHO LV Diastolic Diameter PLAX 4.3 cm 4.2 - 5.9 / 3.9 - 5.3 cm LV Systolic Diameter PLAX 2.8 cm IVS Diastolic Thickness 1.4 cm 0.6 - 1.0 / 0.6 - 0.9 cm IVS Systolic Thickness 1.7 cm LVPW Diastolic Thickness 1.0 cm 0.6 - 1.0 / 0.6 - 0.9 cm LVPW Systolic Thickness 1.6 cm RV Chamber Size 3.4 cm LVOT Diameter 2.0 cm LV Ejection Fraction 2D Teich 65.5 % LV Ejection Fraction MOD 2C 69.8 % LV Ejection Fraction 2C AL 70.2 % LA Diameter 2.8 cm LA Width 3.2 cm LA Height 4.8 cm RA Width 3.6 cm RA Height 4.5 cm Aorta at Sinotubular Diameter 2.7 cm M-MODE LV Diastolic Diameter MM 5.3 cm 4.2 - 5.9 / 3.9 - 5.3 cm LV Systolic Diameter MM 3.5 cm LV Ejection Fraction MM Teich 61.9 % IVS Diastolic Thickness MM 1.1 cm 0.6 - 1.0 / 0.6 - 0.9 cm IVS Systolic Thickness MM 1.6 cm LVPW Diastolic Thickness MM 0.9 cm 0.6 - 1.0 / 0.6 - 0.9 cm LVPW Systolic Thickness MM 1.4 cm Aortic Annulus Diameter 2.5 cm LA Ao Ratio MM 1.2 MV E Point Septal Separation 0.4 cm DOPPLER AV Peak Velocity 102.0 cm/s LVOT Peak Velocity 114.0 cm/s AV Area Cont Eq vti 2.9 cm squared AV Area Cont Eq pk 3.5 cm squared MV Area PHT 5.0 cm squared Mitral E to A Ratio 1.3 MV E' Velocity 39.0 cm/s Mitral E to MV E' Ratio 6.2 Mitral E to LV E' Lateral Ratio 5.9 Mitral E to LV E' Septal Ratio 6.4 TR Peak Velocity 163.0 cm/s TR Peak Gradient 10.6 mmHg Right Atrial Pressure 3.0 mmHg Pulmonary Artery Systolic Pressu 13.6 mmHg PV Peak Velocity 100.3 cm/s RV Acceleration Time 0.1 s RV Ejection Time 0.3 s RV AcT/ET 0.3 FINDINGS Left Ventricle Normal left ventricular size and systolic function, EF70%.no regional wall motion abnormalities. Right Ventricle The right ventricle is normal in size and function. Right Atrium The right atrium is normal in size. Left Atrium The left atrium is normal in size. Mitral Valve No gross abnormalities noted Aortic Valve No gross abnormalities noted Tricuspid Valve Trace tricuspid valve regurgitation. Pulmonic Valve Mild pulmonary valve regurgitation. Pericardium Normal pericardium without effusion. Aorta Normal ascending aorta dimension. CONCLUSIONS Normal left ventricular size and systolic function, EF70%.no regional wall motion abnormalities. Mild pulmonary valve regurgitation. Trace tricuspid valve regurgitation. Estimated pulmonary artery peak systolic pressure of 14 mmHg There is no pericardial effusion. There are no intracardiac masses. No previous study is available for comparison. Dr Criselda Guzman MD FACC (Electronically Signed) Final Date: 06 February 2021 14:30 S
--- NOTE | 2021-02-06 05:00 | US_ITS ---
WS: [id number] RENAL ULTRASOUND HISTORY: renal mass COMPARISON: Chest CT 02/05/2021 TECHNIQUE: 2-D and color Doppler imaging of the kidney submitted. Right kidney: 12.0 cm x 4.1 cm x 4.8 cm. Normal echogenicity with no hydronephrosis or mass. Left kidney: 12.2 cm x 4.5 cm x 6.2 cm. Normal echogenicity with no hydronephrosis or mass. Cyst suspected on CT is not identified by ultraso und. Aorta: Normal. Urinary Bladder: Normal distention. US/US renal BI* [id number] IMPRESSION: 1. No hydronephrosis or mass identified. 2. CT is suspicious for solid or cystic mass from the LEFT kidney. As this is not identified by ultrasound recommended follow-up renal CT mass protocol.
--- NOTE | 2021-02-06 05:30 | PC.NURSE ---
Patient up ad luz. Requested to have scd's removed for a while this morning. Discussed with patient low heart rate in the upper 40s to upper 50s. Patient reported have HR as low as 38. Patient stated, 53 is great. Patient denies any dizziness, lightheadedness or other discomforts. No distress observed.
[2021-02-06 05:38] LABS: Alanine Aminotransferase 17 U/L (0-41); Albumin Level 4.1 g/dL (3.5-5.2); Alkaline Phosphatase 44 IU/L (40-130); Anion Gap 15.8 (5-19); Aspartate Amino Transferase 13 U/L (0-40); Blood Urea Nitrogen 13 mg/dL (8-23); Calcium 9.4 mg/dL (8.5-10.5); Carbon Dioxide 23 mmol/L (22-29); Chloride 107 mmol/L (98-107); Globulin 2.5 g/dL (1.3-4.6); Glomerular Filtration Rate 75.5 mL/min (90-130); Glucose 88 mg/dL (65-115); Magnesium 2.1 mg/dL (1.7-2.3); Osmolality Calculated 292 mOsm/kg (285-295); Phosphorus 4.4 mg/dL (2.5-4.5); Potassium 4.8 mmol/L (3.5-5.1); Sodium 141 mmol/L (136-145); Thyroid Stimulating Hormone 5.41 uIU/mL (0.27-4.20); Total Bilirubin 0.3 mg/dL (0.15-1.2); Total Protein 6.6 g/dL (6.6-8.7)
[2021-02-06] MEDS: acetaminophen 325 mg Tablet 650 MG PO (08:54)
[2021-02-06] MEDS: famotidine 20 mg Tablet PO (08:54)
[2021-02-06] MEDS: aspirin 81 mg EC Tablet PO (08:54)
--- NOTE | 2021-02-06 09:01 | PC.NURSE ---
Patient to cardiac catheterization technologist at this time. A&Ox4.
--- NOTE | 2021-02-06 09:07 | W.PM.OPSUD ---
Surgery/Procedure H&P Update DATE OF PROCEDURE: February 06, 2021 DATE H&P PERFORMED: 02/05/21 H&P UPDATE INFORMATION: I have reviewed H&P completed within last 30 days, I have examined patient prior to procedure and No changes to prior documentation PREOP DIAGNOSIS: Unstable angina PRIMARY INDICATION FOR PROCEDURE: Unstable angina PLANNED PROCEDURE: Coronary angiography/ Left heart cath with possible percutaneous coronary intervention PATIENT REASSESSED PRIOR TO SEDATION, WITH NO CHANGE NOTED: Yes PHYSICAL EXAM: alert, oriented x 3 and clear to auscultation bilaterally AIRWAY EVAL/ANESTHESIA PLAN: ASA III, Risks, benefits & alternatives of sedation and/or procedure discussed and Patient agrees to continue as planned
--- NOTE | 2021-02-06 09:09 | XACV_ITS ---
Exam Room: [facility] Ht: 180 cm Wt: 85 kg BSA: 2.08 m2 Gender: Male : 1955 Exam Priority: Routine Procedure(s): Procedure Description: Diagnostic procedure Procedure Description: Coronary angiogram Diagnostic Cath Status: Urgent Diagnostic Findings * No significant disease noted in the Left Main, LAD, Circumflex, or RCA coronary arteries. * Coronary angiography shows right dominance. Conclusions 1. No significant disease noted in the Left Main, LAD, Circumflex, or RCA coronary arteries. Recommendations * Transfer back to CSU. * Patient will need event monitor at discharge as has possible wandering pacemaker. * Outpatient cardiology follow up. Clinical Evaluation EBL: 5mL-10mL Procedural Details Procedure Consent Obtained. Admit Source: In Patient. Pre-Procedure Time Out. Identified patient by full name and date of as verbalized by the patient/guarantor. Does the consent match the physician's order: Yes. Accurate & Complete Informed Consent: Yes. Inpatient/Outpatient History & Physical on Chart: Yes. If H&P is completed, is and addenduem needed: N/A; If yes, is the addendum complete: N/A. Visualize and Verify Site with Patient/Guarantor: N/A. Relevant Radiology Images available: N/A. Pre-op teaching completed and patient verbalized understanding. The risks, benefits, and alternatives of sedation and/or procedure were discussed by physician. The patient agrees to continue. Procedure started. Correct patient, site and procedure confirmed by cath team. PERRLA. Strong, equal hand boat fueler bilaterally. Lungs clear x 5 lobes. IV Site on Arrival: 20 gauge in the left forearm. Oxygen started at 2liters/min via nasal canula. bilateral groins was prepped with chloroprep then draped in the usual sterile fashion. right radial was prepped with chloroprep then draped in the usual sterile fashion. Physician notified. Baseline sample Acquired. HR: 47 BPM. Physician arrived. Physician scrubbed in. Immediate Pre-Procedure Time Out. Correct Patient: Yes; Correct Procedure: Yes; Correct Site: Yes; Correct Patient Position: Yes; Correct Supplies: Yes; Dried Flammable Prep: Yes; Blood Products Available: N/A;. Lidocaine 1% infiltrated to the right radial. Arterial access obtained. A 5 indonesian TIG catheter in over wire. hand injection performed. glide wire inserted. glidewire out. Multiple views taken of left coronary artery. Catheter out. A 5 indonesian Angled Pig catheter in over wire. Catheter out. Multiple views taken of right coronary artery. TR band placed. Hemostasis obtained. Post Procedure: Pulses reassessed and unchanged. PERRLA. Strong, equal hand boat fueler bilaterally. No VTE prophylaxis required. Medication's Wasted: Lidocaine 1% = 18 mL. Medication's Wasted: Nitro = 49.6 mg. Medication's Wasted: Heparin = 1000 units. Total IV fluids: 100 mL. [facility] Clinical Fraility Score: 2: Well. Back Office Medical Assistant Indications: Worsening Angina. Chest Pain Symptom Assessment: Typical Angina Symptoms. Cardiovascular Instability: no. Contrast type used: Omnipaque 300 mgI/mL, 500 mL bottle. Contrast Material : Omnipaque 51 ml. Post-op diagnosis: non obstructive CAD. Complications: none. Estimated blood loss: 5mL-10mL. Procedure completed. A TR Band was successful obtaining hemostatsis at the Right Radial artery insertion site. Patient transferred by wheelchair to 1st floor. Vital chart was stopped. Access Site Site: Right Radial artery Sheath Size: 6 Fr Hemostasis Method: TR Band Hemostasis Success: Successful Procedure Medications Start: 9:44 AM Stop: 9:44 AM Medication: Versed Amount: 1 mg Route: I.V. Start: 9:44 AM Stop: 9:44 AM Medication: Fentanyl Amount: 50 mcg Route: I.V. Start: 9:45 AM Stop: 9:45 AM Medication: Versed Amount: 1 mg Route: I.V. Start: 9:45 AM Stop: 9:45 AM Medication: Fentanyl Amount: 50 mcg Route: I.V. Start: 9:47 AM Stop: 9:47 AM Medication: Nitrogylcerin Amount: 200 mcg Route: I.A. Start: 9:15 AM Stop: 9:15 AM Medication: Aspirin Amount: 325 mg Route: P.O. Start: 9:20 AM Stop: 9:20 AM Medication: Benadryl Amount: 50 mg Route: I.V. Start: 9:52 AM Stop: 9:52 AM Medication: Heparin Amount: 5000 units Route: I.V. Start: 10:01 AM Stop: 10:01 AM Medication: Nitrogylcerin Amount: 200 mcg Route: I.A. I, the attending physician, have reviewed and verified all procedure medications. Yes, all medications given per verbal order History/Risk Factors Tobacco Use: Never Report Signatures Finalized by Dawood Vidales MD on 02/19/2021 10:12 AM
[2021-02-06 09:14] LABS: Chol HDL Ratio 6.23 mg/dL (1.0-5.00); Cholesterol 249 mg/dL (0-200); HDL Cholesterol 40 mg/dL (60-100); LDL Cholesterol Calculated 179 mg/dL (50-129); LDL HDL Ratio 4.48 RATIO (0.00-3.22); NT Pro B Type Natriuretic Pept 29 pg/mL (0-125); Triglycerides 149 mg/dL (0-150)
--- NOTE | 2021-02-06 09:21 | PC.CHAP ---
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 Relational/Emotional Strength [] Patient feels connected with others/family/visitors/staff [] Distress [] Loneliness/isolation [] Abandonment Spirituality of Patient [] Person of Miryam [] Attends Mormonism of their Miryam [] Believes in Prayer [] Reads Bible or Gnosticist materials [] There are Spiritual issues to be addressed Freight Flow Sales Leader Interventions [x] Prayer [] Active listening [] Non-anxious presence [] Spiritual/emotional support [] Crisis/trauma care [] Spiritual counseling [] Bereavement support [] Provided bereavement packet [] Provided Bible/devotional materials [] Provided toy/stuffed animal, coloring book to patient or family member [] Provided Communion [] Anointing/[place] [] Salvation [x] Completed spiritual assessment [] Other: Impact on Illness or Injury [] Angry [] Fearful [] Anxious [] Often cries [] Exhaustion [] Unable to work [] Unable to attend oriental orthodox [] Unable to walk/stand [] Unable to read [] Unable to drive [] Unable to eat/drink [] Unable to sleep [] Unable to be with family [] Patient intubated [] Other: Summary Time spent with patient
--- NOTE | 2021-02-06 10:30 | PC.NURSE ---
Patient to CSU from cath laboratory technician at 1015. 2 nurse verification of insertion site, TR band intact, asymptomatic. Patient educated on activity restrictions, verbalized understanding. Nurse to continue to monitor
--- NOTE | 2021-02-06 11:19 | PM.PN ---
Subjective Subjective: Interval history: Patient is doing well . Denies any complaints of chest pain, shortness of breath or palpitations today. He underwent coronary angiogram yesterday that did not show signficant coronary artery disease Vitals/I&O/Wt Last Vital Signs Temp 97.8 F 02/06/21 11:01 Pulse 50 L 02/06/21 11:01 Resp 18 02/06/21 11:01 BP 113/62 02/06/21 11:01 Pulse Ox 94 02/06/21 11:01 02/05/21 02/06/21 02/06/21 22:59 06:59 14:59 Intake Total 120 / 120 Balance 120 / 120 Weight last 48 hrs Weight 188 lb Weight 185 lb Physical Exam Const: COMMON NORMALS: no acute distress and patient oriented x3 GENERAL APPEARANCE: cooperative and comfortable HENMT: COMMON NORMALS: normocephalic HEAD & SCALP: normocephalic Eye: COMMON NORMALS: Equal, round and reactive pupils present and EOMs intact bilaterally GENERAL EYE: appearance normal, both eyes and all related structures PUPIL: Yes Equal, round and reactive pupils present Neck/C-Spine: COMMON NORMALS: full ROM, no lymphadenopathy, no JVD and Thyroid normal THYROID: Thyroid normal Lymph: LYMPHATIC: no lymphadenopathy noted Resp: COMMON NORMALS: normal respiratory effort, No retractions, No use of accessory muscles and clear to auscultation bilaterally AUSCULTATION: clear to auscultation bilaterally Cardio: COMMON NORMALS: no JVD, regular rate, regular rhythm, S1 normal heart sound present, S2 normal heart sound present, No gallops present (Cardio), No clicks present (Cardio) and No murmurs present (Cardio) RATE: regular rate RHYTHM: regular rhythm HEART SOUNDS: S1 normal heart sound present and S2 normal heart sound present GI: COMMON NORMALS: Normal to inspection, nondistended, normoactive bowel sounds present, Soft to palpation, non-tender and No hepatosplenomegaly present PALPATION: Yes Soft to palpation and Yes No hepatosplenomegaly present Extremity: COMMON NORMALS: normal to inspection, full ROM and no pedal edema Neuro: COMMON NORMALS: patient oriented x3, CN's II-XII intact bilaterally, moves all extremities and no focal motor deficits Psych: COMMON NORMALS: mental status grossly normal, Normal thought process present and cooperative THOUGHT PROCESS: Normal thought process present Data : 02/06/21 04:22 02/06/21 04:22 A&P Assessment and plan (1) Chest pain: Status: Resolved (2) Shortness of Breath: Status: Resolved Patient had a recent onset of shortness of breath and chest pain. Cardiac cath did not reveal significant CAD LV function is normal. One of the EKGs concerning for wandering pacemaker. Can put patient on event monitor on discharge Thank you for involving us with care of this patient.Patient is ready to be discharged from out standpoint. Please call with questions. Please call with questions Attestations Medical Necessity Statement*: Care expected to cross 2 midnights Coding Level of Care Code Acute Retail Client Solutions Consultant for Chg Fwd Diagnoses Arrhythmia I49.9 Chest pain R07.9 Shortness of Breath R06.02
--- NOTE | 2021-02-06 11:44 | P.PN_ITS ---
Subjective Subjective: Interval history: Patient had one episode of shortness of breath overnight, no chest pain, overall doing well, his cardiac catheterization came back normal, will await cardiac echocardiogram Vitals/I&O/Wt Last Vital Signs Temp 97.8 F 02/06/21 11:01 Pulse 50 L 02/06/21 11:01 Resp 18 02/06/21 11:01 BP 113/62 02/06/21 11:01 Pulse Ox 94 02/06/21 11:01 02/05/21 02/06/21 02/06/21 22:59 06:59 14:59 Intake Total 120 / 120 Balance 120 / 120 Weight last 48 hrs Weight 85.275 kg Weight 83.915 kg Physical Exam Const: COMMON NORMALS: no acute distress and patient oriented x3 GENERAL APPEARANCE: cooperative and comfortable HENMT: COMMON NORMALS: normocephalic HEAD & SCALP: normocephalic Eye: COMMON NORMALS: Equal, round and reactive pupils present and EOMs intact bilaterally GENERAL EYE: appearance normal, both eyes and all related structures PUPIL: Yes Equal, round and reactive pupils present Neck/C-Spine: COMMON NORMALS: no JVD and Thyroid normal THYROID: Thyroid normal Lymph: LYMPHATIC: no lymphadenopathy noted Resp: COMMON NORMALS: normal respiratory effort, No retractions, No use of accessory muscles and clear to auscultation bilaterally AUSCULTATION: clear to auscultation bilaterally Cardio: COMMON NORMALS: no JVD, regular rate, regular rhythm, S1 normal heart sound present and S2 normal heart sound present RATE: regular rate RHYTHM: regular rhythm HEART SOUNDS: S1 normal heart sound present and S2 normal heart sound present GI: COMMON NORMALS: Normal to inspection, nondistended, normoactive bowel sounds present, Soft to palpation, non-tender, No hepatosplenomegaly present, no masses and no bruits PALPATION: Yes Soft to palpation and Yes No hepatosplenomegaly present Extremity: COMMON NORMALS: capillary refill normal, no clubbing, cyanosis or edema, no calf tenderness and no pedal edema Neuro: COMMON NORMALS: patient oriented x3 Psych: COMMON NORMALS: mental status grossly normal and Normal thought process present THOUGHT PROCESS: Normal thought process present Data : 02/06/21 04:22 02/06/21 04:22 A&P Assessment and plan (1) Chest pain: Plan: -Admit to general medical floors -Aspirin, statin, nitro for chest pain -Hold off on beta-ian given sinus bradycardia -Telemetry monitoring -Cardiac cath no significant obstructive CAD -A1c -Cardiac echo pending, evaluation placed on echo findings Status: Acute (2) Bradycardia, sinus: Continue telemetry monitoring, patient currently asymptomatic Status: Acute (3) Left renal mass: Will need to follow-up with urology for further evaluation Status: Acute Attestations Medical Necessity Statement*: Requires hospitalization for chest pain, shortness of breath, possible discharge in the next 24 hours Coding Level of Care Code Acute Desizing Pad Operator for g Fwd Diagnoses Chest pain R07.9 Bradycardia, sinus R00.1 Left renal mass N28.89
--- NOTE | 2021-02-06 14:44 | PC.NURSE ---
TR band off at 1400. Removed per protocol. Patient tolerated well. Nurse to continue to monitor. Physician updated on patient condition.
--- NOTE | 2021-02-06 15:06 | P.DS_ITS ---
Discharge Providers Date of Admission: 02/05/21 15:00 Date of Discharge: February 06, 2021 Attending Provider at Admission: Ted Reeves MD Attending Provider at Discharge: Ted Reeves MD Primary Care Provider: SEYMOUR Gonzalez Diagnoses at Discharge Discharge Diagnosis (1) Chest pain: Status: Acute (2) Bradycardia, sinus: Status: Acute (3) Left renal mass: Status: Acute Reason for Visit Reason for Visit: SOB X 2-3 WKS, CP L SIDE Hospital Course Hospital Course This is a 65-year-old male with no significant past medical history, who presents to [facility] due to complaints of shortness of breath and chest pain Patient was admitted to [facility] for chest pain and shortness of breath, his CT angiogram on admission did not show any significant pneumonia, no pulmonary emboli, EKG had no acute ST-T wave changes, did show sinus bradycardia, no clinically significant delta troponin, cardiology was consulted, patient underwent a cardiac catheterization which did not show any obstructive CAD, cardiac echocardiogram showed an EF of 70%, no regional wall motion abnormalities. Patient's EKGs in office were reviewed, some evidence of sinus arrhythmia, patient will be discharged on a event monitor, aspirin, statin, with follow-up with Dr. Vidales in 1 month. Patient was advised if he were to have recurrent chest pain shortness of breath to come back to the emergency room. Follow-up with MICHAEL garsia in 1 week. Incidentally patient was found to have a left renal 2.3 cm mass, ultrasound of the left kidney did not delineate any more information, unfortunately we cannot perform a CT of the kidney with contrast to better delineate the mass as he already received contrast from his coronary angiogram. Patient will follow up with Dr. Wlaker in 2 weeks, for further work-up, likely CT of the kidney with contrast, but I will leave up any further work-up and evaluation up to his expertise. Physical Exam Const: COMMON NORMALS: no acute distress and patient oriented x3 HENMT: COMMON NORMALS: normocephalic HEAD & SCALP: normocephalic Neck/C-Spine: COMMON NORMALS: no JVD Resp: COMMON NORMALS: normal respiratory effort, No retractions, No use of accessory muscles and clear to auscultation bilaterally AUSCULTATION: clear to auscultation bilaterally Cardio: COMMON NORMALS: no JVD, regular rate, regular rhythm, S1 normal heart sound present and S2 normal heart sound present RATE: regular rate RHYTHM: regular rhythm HEART SOUNDS: S1 normal heart sound present and S2 normal heart sound present GI: COMMON NORMALS: Normal to inspection, nondistended, normoactive bowel sounds present, Soft to palpation, non-tender, No hepatosplenomegaly present, no masses and no bruits PALPATION: Yes Soft to palpation and Yes No hepatosplenomegaly present Extremity: COMMON NORMALS: capillary refill normal, no clubbing, cyanosis or edema, no calf tenderness and no pedal edema Neuro: COMMON NORMALS: patient oriented x3 Psych: COMMON NORMALS: mental status grossly normal Discharge Data Data Completed and Pending: Completed Studies During Hospitalization Category Date Time Status CT angio chest PE protcl [id number] Stat Cat Scan 02/05/21 14:00 Completed XR chest 1V gustavo ble [id number] Stat Exams 02/05/21 11:52 Completed CV echo complete* [id number] Routine Ultrasound 02/06/21 05:00 Completed US renal BI* [id number] Routine Ultrasound 02/06/21 05:00 Completed Pending at discharge Category Date Time Status [facility] request for service Routin e Exams 02/06/21 09:09 Ordered Complete Blood Co unt w/Auto AM LABS Lab 02/07/21 04:00 Ordered Complete Blood Co unt w/Auto AM LABS Lab 02/08/21 04:00 Ordered Comprehensive Met abolic Panel AM LA BS Lab 02/07/21 04:00 Ordered Comprehensive Met abolic Panel AM LA BS Lab 02/08/21 04:00 Ordered Magnesium AM LABS Lab 02/07/21 04:00 Ordered Magnesium AM LABS Lab 02/08/21 04:00 Ordered Phosphorus AM LAB S Lab 02/07/21 04:00 Ordered Phosphorus AM LAB S Lab 02/08/21 04:00 Ordered Labs from last 24 hours 02/06/21 02/06/21 02/06/21 04:22 04:22 04:22 WBC 7.6 RBC 4.78 Hgb 14.8 Hct 44.5 MCV 93.1 MCH 31.0 MCHC 33.3 RDW 11.9 L Plt Count 259 MPV 9.6 Neut % (Auto) 50.0 Lymph % (Auto) 35.3 [place] % (Auto) 9.9 Eos % (Auto) 3.7 Baso % (Auto) 0.8 Neut # (Auto) 3.80 Lymph # (Auto) 2.7 [place] # (Auto) 0.8 Eos # (Auto) 0.3 Baso # (Auto) 0.1 Nucleated RBC % (a uto) 0 Nucleated RBCs # 0.0 Sodium 141 Potassium 4.8 Chloride 107 Carbon Dioxide 23 Anion Gap 15.8 BUN 13 Creatinine 1.0 GFR Calculation 75.5 L Glucose 88 Calculated Osmolal ity 292 Calcium 9.4 Phosphorus 4.4 Magnesium 2.1 Total Bilirubin 0.3 AST 13 ALT 17 Alkaline Phosphata se 44 Troponin T Hi Sens 6Hr Troponin T Hi Sens 6Hr Delta NT-Pro-B Natriuret Pep 29 Total Protein 6.6 Albumin 4.1 Globulin 2.5 Triglycerides 149 Cholesterol 249 H LDL Cholesterol, C alc 179 H HDL Cholesterol 40 L LDL/HDL Ratio 4.48 H Cholesterol/HDL Ra james 6.23 H TSH 5.41 H 02/05/21 17:51 WBC RBC Hgb Hct MCV MCH MCHC RDW Plt Count MPV Neut % (Auto) Lymph % (Auto) [place] % (Auto) Eos % (Auto) Baso % (Auto) Neut # (Auto) Lymph # (Auto) [place] # (Auto) Eos # (Auto) Baso # (Auto) Nucleated RBC % (a uto) Nucleated RBCs # Sodium Potassium Chloride Carbon Dioxide Anion Gap BUN Creatinine GFR Calculation Glucose Calculated Osmolal ity Calcium Phosphorus Magnesium Total Bilirubin AST ALT Alkaline Phosphata se Troponin T Hi Sens 6Hr 6 Troponin T Hi Sens 6Hr Delta 0 NT-Pro-B Natriuret Pep Total Protein Albumin Globulin Triglycerides Cholesterol LDL Cholesterol, C alc HDL Cholesterol LDL/HDL Ratio Cholesterol/HDL Ra james TSH Vitals: Last Vital Signs Temp 98.2 F 02/06/21 15:02 Pulse 64 02/06/21 15:02 Resp 16 02/06/21 15:02 BP 110/67 02/06/21 15:02 Pulse Ox 94 02/06/21 15:02 Discharge Plan Discharge Patient Disposition: Home Condition: Stable Prescriptions: New aspirin 81 mg Tablet,Delayed Release (Dr/Ec) 81 mg PO DAILY 30 Days Qty: 30 RF: 0 atorvastatin 40 mg Tablet 40 mg PO Q24H 30 Days Qty: 30 RF: 0 Continued amoxicillin 875 mg tablet 875 mg PO BID 10 Days Qty: 20 RF: 0 Discharge Orders: Discharge Order (Routine); Ordered 02/06/21 Ordered By: Ted Reeves Other Ambulatory Orders: [place] cardiac event monitor (Routine) Timeframe: 1 Day Facility: [facility] - Location: Cardiac Diagnostic Laboratory Ordered By: Ted Reeves Referrals: MICHAEL Garsia, SEYMOUR [Primary Care Provider] - (Please follow-up with MICHAEL AHUJA on February 12 at 2:00P.M. If you have any questions or need to reschedule. Please call Also, you have any appointment at [facility] today ar 3:30p.m. ) Thomas Walker MD [Physician] - 2 weeks (renal mass) Dawood Vidales M.D [Physician] - 1 month (Please follow-up Dr. Vidales on March 06 at 3:00P.M. If you have any questions or need to reschedule. Please call ) Discharge Diet: Cardiac Discharge Activity: Resume usual activity Patient Instructions: Bradycardia, Aspirin (By mouth), Atorvastatin (By mouth), Left Heart Catheterization (DC), Chest Pain Stoplight, Post Angiogram Home Care Instructions Activity Restrictions/Additional Instructions: -If you have worsening shortness of breath please come back to emergency room -Please wear event monitor, follow-up with Dr. Vidales in 1 month -For renal mass, please follow-up with Dr. Walker in 2 weeks -Follow-up with MICHAEL gasria in 1 week Discharge Attestations Time Spent in Discharge Care*: less than 30 min Quality Metrics Clinical Quality Measures During this hospital stay, did patient experience: None Coding Level of Care Code Acute Chg FW DC note Diagnoses Chest pain R07.9 Bradycardia, sinus R00.1 Left renal mass N28.89
--- NOTE | 2021-02-06 15:54 | PC.NURSE ---
Discharge instructions given per the physician's orders. Patient verbalized understanding of teaching and did not have any further questions. IVs have been removed. Patient dressed self, no further needs identified at this time. [facility] transported to [facility] to be fitted for event monitor.
== END 2021-02-06 15:35 | disposition home or self-care (01) ==
LOC: ER 15:02 → CSU 15:36
PROVIDERS: Internal Medicine; Admitting Provider Family Medicine; Emergency Provider Family Medicine; PCP Nurse Practitioner Family; Visit Provider Family Medicine
DX: I20.0 Unstable angina (principal); I37.1 Nonrheumatic pulmonary valve insufficiency; R07.9 Chest pain, unspecified; R00.1 Bradycardia, unspecified; N28.89 Other specified disorders of kidney and ureter; R06.02 Shortness of breath
CPT/HCPCS: 36415; 71045; 71275; 76770; 80053; 80061; 81003; 83735; 83880; 84100; 84443; 84484; 85025; 85378; 93005; 93306; 93452; 94640; 96360; 96361; 96372; 99285; C1769; C1887; C1894; G0378; J1200; J1644; J1650; J2250; J3010; J3490; J3535; J7030; Q9967

== ENCOUNTER 2021-03-01 10:43 | Outpatient (CLI) | payer BC, SELFPAY ==
--- NOTE | 2021-03-01 10:47 | CT_ITS ---
WS: [id number] CT scan of the abdomen and pelvis with and without IV contrast. Additional two-dimensional coronal an d sagittal reconstruction was performed. 03/01/2021 Clinical Data: RENAL MASS Comparison: CT angiogram chest PE, 02/05/2021. DLP: 2516.[address] scans at [facility] use at least one of these dose optimization techniques: automat ed exposure control; mA and/or kV adjustment per patient size (includes targeted exams where dose is matched to clinical indication); or iterative reconstruction. Findings: There is an enhancing mass in the midportion of the left kidney on the cortex measuring 3.0 cm. This is suspicious for a renal cell carcinoma. Right kidney is normal. No renal calculi, cysts or hydronep hrosis is seen. The lower lungs show no nodules, masses or effusions. There is a small hiatal hernia. The liver, gallbladder, spleen, adrenal glands and pancreas are normal. The abdominal aorta is normal in size. No appendicitis or diverticulitis is seen. The stomach, small bowel and colon are not remarkable. No abscess, adenopathy, ascites, obstruction or free air is seen. The bladder is unremarkable. Prostate is slightly enlarged with calcification. No inguinal hernia is seen. 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 No bony metastatic lesions are seen. CT/CT abdomen pelvis wo/w [id number] Impression: 1. 3.0 cm enhancing lesion midportion left kidney suspicious for renal cancer. 2. The remainder of the abdomen and pelvis shows no acute abnormalities.
[2021-03-01] MEDS: iohexol 300 mg/mL 100 mL Btl IV (11:49)
== END 2021-03-01 10:44 | disposition home or self-care (01) ==
LOC: RAD 10:45
PROVIDERS: PCP Nurse Practitioner Family; Visit Provider Urology
DX: N28.89 Other specified disorders of kidney and ureter (principal)
CPT/HCPCS: 74178; 80048; 81003

== ENCOUNTER → 2021-03-05 09:48 | Outpatient (BNVA) | payer BC, SELFPAY | PROVIDERS: PCP Nurse Practitioner Family; Visit Provider Internal Medicine Pulmonary Disease | DX: R06.02 Shortness of breath (principal); E03.9 Hypothyroidism, unspecified; I49.9 Cardiac arrhythmia, unspecified; T78.40XA Allergy, unspecified, initial encounter; N28.89 Other specified disorders of kidney and ureter | CPT/HCPCS: 82785; 85025; 86003 ==

== ENCOUNTER → 2021-10-28 12:17 | Outpatient (BNVA) | payer BC, SELFPAY | PROVIDERS: PCP Nurse Practitioner Family; Visit Provider Nurse Practitioner Family | DX: M25.511 Pain in right shoulder (principal); G89.29 Other chronic pain; M19.011 Primary osteoarthritis, right shoulder | CPT/HCPCS: 73030 ==

== ENCOUNTER 2022-10-21 09:24 | Inpatient (IN) | payer MEDICARE, SELFPAY ==
[2022-10-21] VITALS (14 sets, daily range): BP systolic 110–153; BP diastolic 52–91; PULSE 37–93; RESP 14–18; TEMP 36.4–36.9; O2SAT 94–99; BMI 25.7
--- NOTE | 2022-10-21 09:36 | ED_ITS ---
HPI - Neuro Symptoms/Deficit General: Chief Complaint: Neuro Symptoms/Deficit Stated Complaint: Stroke like symptoms Time Seen by Provider: 10/21/22 09:28 Source: patient Mode of arrival: ambulatory History of Present Illness: 67-year-old male presents emergency room with right-sided facial droop present on awakening this morning. He was last known well around 10:00 last night he thinks it may began around midnight. When he g ot up at night to go to the bathroom he had some difficulty walking and noted that things were not normal. He did not come in until this morning arrived here at 925. He has no other symptoms. He denies any recent illness denies any ear pain he has not had any watering of the eye. Time: 09:25 Last Observed Normal: 22:00 Location: speech, right face and dysarthria History of same: No Severity: mild Relieving factors: none Exacerbating factors: none Context: sudden onset (Woke up with symptoms) Associated symptoms: Deny chest pain, cough, diaphoresis, fevers/chills, headache(s), anorexia, malaise, nausea, seizures, short of breath, syncope, tingling, vertigo, vomiting or weakness Treatments Prior to Arrival: none Review of Systems Const: Denies: fever(s), chills, fatigue, malaise or diaphoresis ENMT: Denies: throat pain, ear or mastoid pain, nasal discharge or nasal congestion Card: Denies: chest pain or syncope Resp: Denies: dyspnea, productive cough or non-productive cough GI: Denies: abdominal pain, nausea or vomiting : Denies: flank pain, dysuria, urinary frequency or urinary urgency Skin/Breast: Denies: rash or pruritus Neuro: Reports: difficulty walking and Slurred speech present; Denies: headache(s) or vertigo PFSH ED PFSH: Medical History Acute bacterial sinusitis Chest pain Chronic right shoulder pain Closed fracture of left tibial plateau Dizziness Fatigue GERD (gastroesophageal reflux disease) History of coronary angiogram Hypertension screen Hypothyroid Left renal mass 2.5 cm left renal mass discovered coincidentally on chest CT scan. On follow- up CT scan showed heterogeneity consistent with RCCA, Treated with cryo, [place] Lower respiratory infection Medication management Otitis media Prostate cancer screening Shortness of Breath Shortness of Breath Soft tissue infection Weakness Surgical History H/O right knee surgery History of hernia repair Family History Father , AT AGE 78 Diabetes Brother Asthma Social History Smoking and tobacco status: current every day smoker smokeless tobacco Smokeless tobacco user: chewing tobacco Second hand smoke exposure: Yes Smoking risk assessment/counseling performed?: Yes Alcohol intake: never Lives independently: Yes Household members: spouse Housing: House Marital status: service: No Current occupational status: employed 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 Pets and animals: Yes Pets & animals: dog(s) Pets & animal details: outside History of recent travel: No Current gender identity: Male NIH stroke score NIHSS: Level Of Consciousness - 1a: 0 Level Of Consciousness Questions - 1b: Both Correct Level Of Consciousness Commands - 1c: Both Correct Best Gaze - 2: Normal Visual [place] - 3: No Visual Loss Facial Palsy - 4: Minor Paralysis Motor Arm Right - 5: No Drift Motor Arm Left - 5: No Drift Motor Leg Right - 6: No Drift Motor Leg Left - 6: No Drift Limb Ataxia - 7: Absent Sensory - 8: Normal (Right lower face is hyperesthetic) Best Language - 9: Mild/Moderate Aphasia Dysarthia - 10: Mild/Moderate Dysarthia Extinction And Inattention - 11: 0 Score: Total Score: 3 Physical Exam Const: GENERAL APPEARANCE: cooperative and comfortable ORIENTATION /CONSCIOUSNESS: Yes awake, Yes oriented to person, Yes oriented to place and Yes oriented to time HENMT: COMMON NORMALS: normocephalic, atraumatic, hearing grossly normal bilaterally, external ears normal, EAC's normal, TM's normal bilaterally, Normal nasal mucous membranes and turbinates present, moist oral mucous membranes and oropharynx normal HEAD & SCALP: normocephalic and atraumatic NOSE: Normal nasal mucous membranes and turbinates present EXTERNAL EAR: Yes external ears normal EXTERNAL AUDITORY CANAL: EAC's normal TYMPANIC MEMBRANE: TM's normal bilaterally Eye: COMMON NORMALS: Equal, round and reactive pupils present, EOMs intact bilaterally, conjunctivae normal and no scleral icterus CONJUNCTIVA: Yes conjunctivae normal PUPIL: Yes Equal, round and reactive pupils present Neck/C-Spine: COMMON NORMALS: full ROM, no lymphadenopathy and supple Resp: COMMON NORMALS: normal respiratory effort, No retractions, No use of accessory muscles and clear to auscultation bilaterally AUSCULTATION: clear to auscultation bilaterally Cardio: COMMON NORMALS: regular rate, regular rhythm and No murmurs present (Cardio) RATE: regular rate RHYTHM: regular rhythm GI: COMMON NORMALS: Soft to palpation and No hepatosplenomegaly present AUSCULTATION: Yes normoactive bowel sounds PALPATION: Yes Soft to palpation, No Tenderness to palpation present (GI), No Guarding due to palpation present (GI) and Yes No hepatosplenomegaly present Extremity: COMMON NORMALS: normal to inspection, capillary refill normal, no clubbing, cyanosis or edema, no calf tenderness and no pedal edema Neuro: SENSORIUM/ORIENTATION: Yes oriented to person, Yes oriented to place and Yes oriented to time Skin: COMMON NORMALS: no rashes or lesions noted GENERAL SKIN EXAM: no rashes or lesions noted Course Vital Signs: Vital signs: Vital Signs Pulse Rate 37 L 10/21/22 13:09 Respiratory Rate 16 10/21/22 13:09 Blood Pressure 129/70 10/21/22 13:09 Pulse Oximetry 97 10/21/22 13:09 Oxygen Delivery Me thod 10/21/22 13:09 MDM - Neuro Symptoms/Deficit Medical Decision Making Patient does have a right-sided facial droop just the lower portion of the face and has a little bit of word finding definite dysarthria with significant slurred speech he is noticeably bradycardic but he states he is chronically like that that is not unusual for him blood pressures been well maintained. CT showed early changes of a left parietal stroke. We will get a go ahead and admit him. I discussed Dr. Abraham she did not think patient would be a c andidate for embolectomy given the lower NIH score. We did do a CTA which showed no evidence of large vessel occlusion. Will admit discussed the hospitalist orders are written Medical Records I reviewed the patient's medical records. Lab Data I reviewed the patient's lab results. 10/21/22 09:58 10/21/22 09:[address] 10/21/22 09:40 IMPRESSION: There is very subtle decreased attenuation in the left posterior temporal lobe cortex suggestive of acute ischemia. No sign of hemorrhage. Notified Kian Gonzalez DO at 10/21/2022 10:07 AM. Head/Neck CTA 10/21/22 12:19 IMPRESSION: No large vessel stenosis or occlusion. IMPRESSION: No stenosis or occlusion. REFERENCES: NASCET CRITERIA. The degree of stenosis in the cervical segment of the internal carotid artery is based on NASCET criteria. Normal is no stenosis. Mild is less than 50% stenosis. Moderate is 50-69% stenosis. Severe is 70% to 99% stenosis. Total occlusion is no detectable patent lumen. Laboratory Results WBC 7.4 10^3/uL (4.0-10.0) 10/21/22 09:58 RBC 4.68 10^6/uL (4.1-5.3) 10/21/22 09:58 Hgb 14.4 g/dL (11.7-16.6) 10/21/22 09:58 Hct 44.2 % (42.0-52.0) 10/21/22 09:58 MCV 94.4 fl (80-94) H 10/21/22 09:58 MCH 30.8 pg (28.0-34.0) 10/21/22 09:58 MCHC 32.6 g/dL (30.0-36.0) 10/21/22 09:58 RDW 12.4 % (12.1-15.1) 10/21/22 09:58 Plt Count 253 10^3/cmm (130-400) 10/21/22 09:58 MPV 9.6 fL (7.4-10.4) 10/21/22 09:58 Neut % (Auto) 62.7 % 10/21/22 09:58 Lymph % (Auto) 23.8 % 10/21/22 09:58 [place] % (Auto) 10.1 % 10/21/22 09:58 Eos % (Auto) 2.4 % 10/21/22 09:58 Baso % (Auto) 0.7 % 10/21/22 09:58 Neut # (Auto) 4.65 10^3/uL (1.8-7.7) 10/21/22 09:58 Lymph # (Auto) 1.8 10^3/uL (0.8-4.8) 10/21/22 09:58 [place] # (Auto) 0.8 10^3/uL (0.2-0.9) 10/21/22 09:58 Eos # (Auto) 0.2 10^3/uL (0.0-0.8) 10/21/22 09:58 Baso # (Auto) 0.1 10^3/uL (0.0-0.1) 10/21/22 09:58 Nucleated RBC % (auto) 0 % 10/21/22 09:58 Nucleated RBCs # 0.0 /100WBC 10/21/22 09:58 PT 14.40 SECONDS (12.1-14.9) 10/21/22 09:58 INR 1.09 (0.8-1.2) 10/21/22 09:58 APTT 26.1 SECONDS (23.9-36.7) 10/21/22 09:58 Sodium 137 mmol/L (136-145) 10/21/22 09:58 Potassium 4.2 mmol/L (3.5-5.1) 10/21/22 09:58 Chloride 106 mmol/L (98-107) 10/21/22 09:58 Carbon Dioxide 22 mmol/L (22-29) 10/21/22 09:58 Anion Gap 13.2 (5-19) 10/21/22 09:58 BUN 11 mg/dL (8-23) 10/21/22 09:58 Creatinine 0.8 mg/dL (0.7-1.2) 10/21/22 09:58 GFR Calculation 97.0 mL/min (90-130) 10/21/22 09:58 Glucose 93 mg/dL (65-115) 10/21/22 09:58 Calculated Osmolality 283 mOsm/kg (285-295) L 10/21/22 09:58 Calcium 9.4 mg/dL (8.5-10.5) 10/21/22 09:58 Total Bilirubin 0.6 mg/dL (0.15-1.2) 10/21/22 09:58 AST 13 U/L (0-40) 10/21/22 09:58 ALT 12 U/L (0-41) 10/21/22 09:58 Alkaline Phosphatase 47 U/L (40-130) 10/21/22 09:58 Total Protein 6.7 g/dL (6.6-8.7) 10/21/22 09:58 Albumin 4.0 g/dL (3.5-5.2) 10/21/22 09:58 Globulin 2.7 g/dL (1.3-4.6) 10/21/22 09:58 TSH 3.13 uIU/mL (0.27-4.20) 10/21/22 09:58 Urine Color Yellow (Yellow) 10/21/22 09:58 Urine Appearance Clear (CLEAR) 10/21/22 09:58 Urine pH 6 (5-7) 10/21/22 09:58 Ur Specific [place] 1.015 (1.005-1.030) 10/21/22 09:58 Urine Protein Neg (Negative) 10/21/22 09:58 Urine Glucose (UA) Norm (Normal) 10/21/22 09:58 Urine Ketones Negative (Negative) 10/21/22 09:58 Urine Blood Neg (Negative) 10/21/22 09:58 Urine Nitrate Negative (Negative) 10/21/22 09:58 Urine Bilirubin Neg (Negative) 10/21/22 09:58 Urine Urobilinogen Norm mg/dL (Negative) 10/21/22 09:58 Ur Leukocyte Esterase Negative (Negative) 10/21/22 09:58 Urine Opiates Screen Negative ng/mL (Negative) 10/21/22 09:58 Ur Barbiturates Screen Negative ng/mL (Negative) 10/21/22 09:58 Ur Phencyclidine Scrn Negative ng/mL (Negative) 10/21/22 09:58 Ur Amphetamines Screen Negative ng/mL (Negative) 10/21/22 09:58 U Benzodiazepines Scrn Negative ng/mL (Negative) 10/21/22 09:58 Urine Cocaine Screen Negative ng/mL (Negative) 10/21/22 09:58 U Marijuana (THC) Screen Negative ng/mL (Negative) 10/21/22 09:58 Discharge Plan Discharge Condition: Stable Prescriptions: No Action aspirin [Adult Low Dose Aspirin] 81 mg tablet,delayed release (DR/EC) 81 mg PO .ONCE Tylenol Ex Str Rapid Release 500 mg Tablet 1,000 mg PO Q6H PRN (Reason: Pain) ibuprofen 200 mg Tablet 400 mg PO Q6H PRN (Reason: Pain) Protonix 40 mg tablet,delayed release (DR/EC) 40 mg PO DAILY PRN (Reason: Acid Reflux) Coding Level of Care Code ED Timber Girdler for Gordo Cuellar
--- NOTE | 2022-10-21 09:40 | ECG_ITS ---
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 Measurements Intervals [place] Rate: 38 P: 55 SD: 180 QRS: 34 QRSD: 101 T: 39 QT: 467 QTc: 375 Interpretive Statements SINUS BRADYCARDIA CRITICAL TEST RESULT Compared to ECG 02/05/2021 18:02:31 Myocardial infarct finding no longer present Electronically Signed On 10-21-2022 12:53:01 CLOTH SHADER by Dorothy Brown M.D. [id number]
--- NOTE | 2022-10-21 09:40 | CT_ITS ---
WS: [id number] EXAMINATION: CT head thrombolytic [id number] HISTORY: Stroke protocol ORDER DATE: 10/21/2022 9:51 AM TECHNIQUE: CT imaging of the head is performed without the use of intravascular contrast with transax ial imaging from the skull base to the vertex with 2-D reformats. RADIATION DOSE: 1006.74 mG-cm FINDINGS: CT attenuation suggests a subtle interval change in the left posterior temporal cortex region. The ve ntricles were normal in outline. There was no mass effect, midline shift or any sign of intraventricu lar or parenchymal hemorrhage. The mastoids and visible sinuses are unremarkable. There were no extra -axial fluid collections and no sign of skull fracture. CT/CT head thrombolytic [id number] IMPRESSION: There is very subtle decreased attenuation in the left posterior te mporal lobe cortex suggestive of acute ischemia. No sign of hemorrhage. Notified Kian Gonzalez DO at 10/21/2022 10:07 AM.
[2022-10-21 10:03] LABS: Basophils # 0.1 10^3/uL (0.0-0.1); Basophils % 0.7 %; Eosinophils # 0.2 10^3/uL (0.0-0.8); Eosinophils % 2.4 %; Hematocrit 44.2 % (42.0-52.0); Hemoglobin 14.4 g/dL (11.7-16.6); Lymphocytes # 1.8 10^3/uL (0.8-4.8); Lymphocytes % 23.8 %; Mean Corpuscular HGB Conc 32.6 g/dL (30.0-36.0); Mean Corpuscular Hemoglobin 30.8 pg (28.0-34.0); Mean Corpuscular Volume 94.4 fl (80-94); Mean Platelet Volume 9.6 fL (7.4-10.4); Monocytes # 0.8 10^3/uL (0.2-0.9); Monocytes % 10.1 %; Neutrophils # 4.65 10^3/uL (1.8-7.7); Neutrophils % 62.7 %; Nucleated Red Blood Cells % 0 %; Platelet Count 253 10^3/cmm (130-400); Red Blood Count 4.68 10^6/uL (4.1-5.3); Red Cell Distribution Width 12.4 % (12.1-15.1); White Blood Count 7.4 10^3/uL (4.0-10.0)
[2022-10-21 10:16] LABS: INR 1.09 (0.8-1.2)
[2022-10-21 10:17] LABS: Partial Thromboplastin Time 26.1 SECONDS (23.9-36.7)
[2022-10-21 10:19] LABS: Add Urine Microscopic? NO; Charge for UA Resulting for Rev
[2022-10-21 10:23] LABS: Alanine Aminotransferase 12 U/L (0-41); Alkaline Phosphatase 47 U/L (40-130); Aspartate Amino Transferase 13 U/L (0-40); Blood Urea Nitrogen 11 mg/dL (8-23); Calcium 9.4 mg/dL (8.5-10.5); Carbon Dioxide 22 mmol/L (22-29); Chloride 106 mmol/L (98-107); Globulin 2.7 g/dL (1.3-4.6); Glucose 93 mg/dL (65-115); Osmolality Calculated 283 mOsm/kg (285-295); Sodium 137 mmol/L (136-145); Total Bilirubin 0.6 mg/dL (0.15-1.2); Total Protein 6.7 g/dL (6.6-8.7)
[2022-10-21 10:25] LABS: Anion Gap 13.2 (5-19); Potassium 4.2 mmol/L (3.5-5.1)
[2022-10-21 10:26] LABS: Bilirubin Urine Neg (Negative); Blood Urine Neg (Negative); Glucose Urine UA Norm (Normal); Ketones Urine Negative (Negative); Leukocyte Esterase Urine Negative (Negative); Nitrate Urine Negative (Negative); Protein Urine Neg (Negative); Specific Gravity, Urine 1.015 (1.005-1.030); Urine Appearance Clear (CLEAR); Urine Color Yellow (Yellow); Urobilinogen Urine Norm (Negative); pH Urine 6 (5-7)
[2022-10-21 10:34] LABS: Amphetamines Screen Urine Negative (Negative); Barbiturates Screen Urine Negative (Negative); Benzodiazepines Screen Urine Negative (Negative); Cocaine Screen Urine Negative (Negative); Opiate Screen Urine Negative (Negative); PCP Screen Urine Negative (Negative); THC Screen Urine Negative (Negative)
--- NOTE | 2022-10-21 12:19 | CTR_ITS ---
PROCEDURE INFORMATION: Exam: CTA Head With Contrast, Arteriography Exam date and time: 10/21/2022 12:49 PM Age: 67 years old Clinical indication: Other: CVA TECHNIQUE: Imaging protocol: Computed tomographic angiography of the head with contrast. Exam focused on the arteries. 3D rendering (Not supervised by radiologist): MIP and/or 3D reconstructed images were created by the technologist. Radiation optimization: All CT scans at this facility use at least one of these dose optimization techniques: automated exposure control; mA and/or kV adjustment per patient size (includes targeted exams where dose is matched to clinical indication); or iterative reconstruction. Contrast material: OMNI 350; Contrast volume: 100 ml; Contrast route: INTRAVENOUS (IV); COMPARISON: CT head thrombolytic [id number] 10/21/2022 9:48 AM RADIATION DOSE METRICS: Total DLP (mGy-cm): 545.38 FINDINGS: ANTERIOR CIRCULATION: Right internal carotid artery: Intracranial segment is patent with no significant stenosis. No aneurysm. Right middle cerebral artery: No occlusion or significant stenosis. No aneurysm. Right anterior cerebral artery: No occlusion or significant stenosis. No aneurysm. Left internal carotid artery: Intracranial segment is patent with no significant stenosis. No aneurysm. Left middle cerebral artery: No occlusion or significant stenosis. No aneurysm. Left anterior cerebral artery: No occlusion or significant stenosis. No aneurysm. POSTERIOR CIRCULATION: Right vertebral artery: No occlusion or significant stenosis. No aneurysm. Left vertebral artery: No occlusion or significant stenosis. No aneurysm. Basilar artery: No occlusion or significant stenosis. No aneurysm. Right posterior cerebral artery: No occlusion or significant stenosis. No aneurysm. Left posterior cerebral artery: No occlusion or significant stenosis. No aneurysm. Brain: No definite mass, mass effect, or midline shift. Cerebral ventricles: No ventriculomegaly. Bones/joints: Unremarkable. No acute fracture. Soft tissues: Unremarkable. PROCEDURE INFORMATION: Exam: CTA Neck With Contrast Exam date and time: 10/21/2022 12:49 PM Age: 67 years old Clinical indication: Other: CVA TECHNIQUE: Imaging protocol: Computed tomographic angiography of the neck with contrast. 3D rendering (Not supervised by radiologist): MIP and/or 3D reconstructed images were created by the technologist. Radiation optimization: All CT scans at this facility use at least one of these dose optimization techniques: automated exposure control; mA and/or kV adjustment per patient size (includes targeted exams where dose is matched to clinical indication); or iterative reconstruction. Contrast material: OMNI 350; Contrast volume: 100 ml; Contrast route: INTRAVENOUS (IV); COMPARISON: CT angio chest PE protcl [id number] 02/05/2021 3:32 PM RADIATION DOSE METRICS: Total DLP (mGy-cm): 545.38 FINDINGS: Right common carotid artery: No stenosis. No dissection or occlusion. Right internal carotid artery: No stenosis of the extracranial segment. No dissection or occlusion. Right external carotid artery: No occlusion or stenosis of the origin. Left common carotid artery: No stenosis. No dissection or occlusion. Left internal carotid artery: No stenosis of the extracranial segment. No dissection or occlusion. Left external carotid artery: No occlusion or stenosis of the origin. Right vertebral artery: No stenosis. No dissection or occlusion. Left vertebral artery: No stenosis. No dissection or occlusion. Soft tissues: Normal. No significant soft tissue swelling. Bones/joints: No acute fracture. CT/CT angio headneck* [id number] IMPRESSION: No large vessel stenosis or occlusion. IMPRESSION: No stenosis or occlusion. REFERENCES: NASCET CRITERIA. The degree of stenosis in the cervical segment of the internal carotid artery is based on NASCET criteria. Normal is no stenosis. Mild is less than 50% stenosis. Moderate is 50-69% stenosis. Severe is 70% to 99% stenosis. Total occlusion is no detectable patent lumen.
[2022-10-21] MEDS: iohexol 350 mg/mL 500 mL Btl (per mL) IV (12:57)
--- NOTE | 2022-10-21 13:27 | P.HP_ITS ---
Providers/Chief Complaint Admitting Physician: Quan Cote MD Chief Complaint: Stroke like symptoms History of Present Illness Reginald Nam is a 67 year old male presenting to the emergency department with complaints of slurred speech, difficulty with word finding, balance issues. His last well-known was around 10 PM last night. He woke up around midnight or so and had some difficulty with balance and symptomatology seem to have been present then to some degree. This morning his deficit was noted by family members and he came to the emergency department. He denies any focal weakness. reports he is somewhat lethargic. He has some increased sensation to the right side of his face. He denies any pain, headache, or nausea. No recent trauma. No past history of stroke. He does report past history of cardiac work-up in January 2021 with angiogram at that time that did not show significant disease. During that time he also had an event monitor done demonstrating no evidence of atrial fibrillation, although a 7 beat run of V. tach was noted. Echo at that time was unrevealing. Review of Systems General: Reports: 10 or more systems reviewed and unremarkable except in HPI and below Const: Denies: fever(s) or chills Eyes: Denies: change in vision ENMT: Denies: throat pain Card: Denies: chest pain Resp: Denies: dyspnea GI: Denies: abdominal pain : Denies: flank pain Musc: Denies: neck pain Skin/Breast: Denies: rash Neuro: Reports: sensory changes, difficulty walking, Slurred speech present and difficulty communicating thoughts; Denies: headache(s) Psych: Denies: anxiety or depression Endo: Denies: polyuria Ebenezer/Lymph: Denies: easy bruising All/Imm: Denies: urticaria Medications/Allergies Home Medications Medication Instructions Recorded Confirmed Last Taken Type aspirin 81 mg tablet,delayed 81 mg PO .ONCE 03/13/21 10/21/22 10/21/22 07:30 History release (Adult Low Dose Aspirin) acetaminophen 500 mg tablet 1,000 mg PO Q6H PRN Pain 10/21/22 10/21/22 Unknown History ibuprofen 200 mg tablet 400 mg PO Q6H PRN Pain 10/21/22 10/21/22 Unknown History pantoprazole 40 mg tablet,delayed 40 mg PO DAILY PRN Acid Reflux 10/21/22 10/21/22 Unknown History release (Protonix) Allergies Allergy/AdvReac Type Severity Reaction Status Date / Time No Known Allergies Allergy Verified 10/21/22 09:58 PFSH Acute PFSH: Medical History (Updated 10/21/22 @ 13:36 by Quan Cote MD) Acute bacterial sinusitis Chest pain Chronic right shoulder pain Closed fracture of left tibial plateau Dizziness Fatigue GERD (gastroesophageal reflux disease) History of coronary angiogram Hypertension screen Hypothyroid Left renal mass 2.5 cm left renal mass discovered coincidentally on chest CT scan. On follow- up CT scan showed heterogeneity consistent with RCCA, Treated with cryo, [place] Lower respiratory infection Medication management Otitis media Prostate cancer screening Shortness of Breath Shortness of Breath Soft tissue infection Weakness Surgical History H/O right knee surgery History of hernia repair Family History Father , AT AGE 78 Diabetes Brother Asthma Social History (Updated 10/21/22 @ 13:32 by Quan Cote MD) Smoking and tobacco status: current every day smoker smokeless tobacco Smokeless tobacco user: chewing tobacco Second hand smoke exposure: Yes Smoking risk assessment/counseling performed?: Yes Alcohol intake: never Lives independently: Yes Household members: spouse Housing: House Marital status: service: No Current occupational status: employed 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 I score him a 5 currently on the NIH scale. I did not delineate any drift/weakness/inattention in his extremities. He does have some hyperparesthesia right face. HEENT: Atraumatic and normocephalic. Pupils equally round and reactive. Extraocular movements are intact. Visual art intact. Oropharynx clear. Neck is supple no lymphadenopathy or thyromegaly Cardiovascular regular rate and rhythm without murmur, no S3 or S4 Lungs clear no wheezing or crackles Abdomen is soft with positive bowel sounds. No obvious organomegaly exams deferred Extremities no cyanosis clubbing or edema, cap refill brisk Skin no rash Data 10/21/22 09:58 10/21/22 09:58 Other Labs: PT and PTT are normal LFTs are normal Albumin 2.7 Urinalysis negative Urine drug screen negative Head CT subtle decreased attenuation left posterior temporal lobe suggestive of acute ischemia EKG demonstrates sinus bradycardia, normal axis, no acute changes. Of interest, family reports he has been bradycardic for years. I have had a CTA ordered. Result currently pending. A&P Assessment and plan (1) CVA (cerebral vascular accident): Patient presents with CVA He is out of window for tPA Awaiting CTA. NIH score currently not indicative for thrombectomy but concerned that some of the symptoms may worsen. Check echocardiogram Check TSH Therapy consultations Hydration Initiate aspirin, Plavix Initiate statin Telemetry monitoring (2) Left renal mass: Treated with mary Sada (3) Sinus bradycardia: Longstanding. Continue to monitor with telemetry Plan Other medical problems as outlined in past medical history Full code currently Lovenox for DVT prophylaxis Attestations Medical Necessity Statement*: Will require greater than 2 midnight stay for evaluation and treatment of CVA with significant impairment. 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
[2022-10-21 14:14] LABS: Thyroid Stimulating Hormone 3.13 uIU/mL (0.27-4.20)
[2022-10-21] MEDS: sodium chloride 0.9% 1,000 ML 75 ML IV (15:32)
[2022-10-21] MEDS: enoxaparin 40 mg/0.4 mL Syringe SUBCUT (15:32)
--- NOTE | 2022-10-21 16:00 | USCV_ITS ---
Reginald Nam Age: 67 Gender: M : 1955 Exam Date: 10/21/2022 16:29 Ordering Phys: Quan Cote MD Technologist: ALAN Exam Location: [facility] [place] Indication: CVA BP: 149 / 76 HR: 37 Rhythm: Sinus Technical Quality: Adequate MEASUREMENTS (Male / Female) Normal Values 2D ECHO LVOT Diameter 2.0 cm LV Ejection Fraction MOD 2C 58.5 % LV Ejection Fraction 2C AL 58.7 % LA Diameter 3.5 cm LA Width 3.1 cm LA Height 4.1 cm RA Width 4.3 cm RA Height 4.5 cm Aorta at Sinotubular Diameter 3.1 cm IVC Diameter 1.2 cm M-MODE Aortic Annulus Diameter 2.7 cm LA Ao Ratio MM 1.2 MV E Point Septal Separation 0.3 cm DOPPLER AV Peak Velocity 111.7 cm/s LVOT Peak Velocity 104.0 cm/s AV Area Cont Eq vti 2.5 cm squared AV Area Cont Eq pk 3.0 cm squared MV Peak Velocity 76.0 cm/s MV Area PHT 2.9 cm squared Mitral E to A Ratio 1.0 MV E' Velocity 32.0 cm/s Mitral E to MV E' Ratio 3.7 Mitral E to LV E' Lateral Ratio 3.8 Mitral E to LV E' Septal Ratio 3.6 TR Peak Velocity 197.5 cm/s TR Peak Gradient 15.6 mmHg TR Mean Velocity 169.4 cm/s TR Mean Gradient 12.6 mmHg TR Velocity Time Integral 69.9 cm TV Peak E Velocity 52.0 cm/s Right Atrial Pressure 3.0 mmHg Pulmonary Artery Systolic Pressu 18.6 mmHg PV Peak Velocity 90.0 cm/s RV Acceleration Time 0.1 s RV Ejection Time 0.3 s RV AcT/ET 0.3 FINDINGS Left Ventricle Normal left ventricular size, systolic function and wall thickness, with no regional wall motion abnormalities. Normal diastolic function. Left ventricular ejection fraction is estimated at 55-60 %. Right Ventricle Normal right ventricular size and systolic function. Normal right ventricular systolic pressure. Right Atrium Mildly increased right atrial size. Left Atrium Mildly increased left atrial size. Mitral Valve Structurally normal mitral valve. Trace mitral valve regurgitation. Aortic Valve Structurally normal aortic valve without significant sclerosis or stenosis. There is no aortic regurgitation. Tricuspid Valve Structurally normal tricuspid valve. Trace tricuspid valve regurgitation. Pulmonic Valve Pulmonic valve not well visualized. Mild pulmonary valve regurgitation. Pericardium Normal pericardium without effusion. Aorta Normal ascending aorta dimension. IVC The inferior vena cava appears normal. CONCLUSIONS Normal left ventricular size, systolic function and wall thickness, with no regional wall motion abnormalities. Normal diastolic function. Left ventricular ejection fraction is estimated at 55-60 %. Mildly increased right atrial size. Mildly increased left atrial size. Structurally normal mitral valve. Trace mitral valve regurgitation. This study is unchanged from the previous study dictated 02/07/20 Dr. Zachery Castaneda MD (Electronically Signed) Final Date: 22 October 2022 09:26 S
[2022-10-21] MEDS: acetaminophen 500 mg Tablet 650 MG PO (16:34)
[2022-10-21 17:06] LABS: Glucose Point of Care 128 mg/dL (70-110)
[2022-10-21] MEDS: atorvastatin 40 mg Tablet 80 MG PO (21:01)
--- NOTE | 2022-10-21 23:34 | PC.NURSE ---
Patient pressed call light so he could be unhooked from his IV and ambulate to restroom. Patient unsecured from IV, and stood up. Patient swayed unsteadily to the right side and grabbed onto bed for support. Patient was assisted to the restroom without further issue and voided. On way back, patient was educated to use a wheel chair for stability despite patient protest. Nurse educated patient to press call light if he needed anything and to not get up on own. Bed alarm was reset, bed locked in lowest position with both side rails up, bedside table and call light within reach.
[2022-10-22 03:58] VITALS: BP 133/64; PULSE 54; RESP 16; TEMP 36.4; O2SAT 96
[2022-10-22] MEDS: sodium chloride 0.9% 1,000 ML 75 ML IV (04:59)
[2022-10-22 05:15] VITALS: PULSE 41
[2022-10-22 05:28] LABS: Estmated Average Glucose 108; Hemoglobin A1C 5.4 % (4.0-6.0)
[2022-10-22 05:43] LABS: Chol HDL Ratio 7.29 mg/dL (1.0-5.00); Cholesterol 248 mg/dL (0-200); HDL Cholesterol 34 mg/dL (60-100); LDL Cholesterol Calculated 175 mg/dL (50-129); LDL HDL Ratio 5.15 RATIO (0.00-3.22); Triglycerides 197 mg/dL (0-150)
[2022-10-22 07:21] VITALS: BP 133/75; PULSE 54; RESP 16; TEMP 36.8; O2SAT 96
--- NOTE | 2022-10-22 07:41 | PC.NURSE ---
This nurse is assuming care of patient, patient is awake and AAOx4, heart rate remains low per patients normal heart rate and remaining VSS. Patient educated to use walker when out of bed with standby assist as he has a shuffling gate and leans to the right while ambulating. Patient also disconnected his own IVF tubing, this nurse educated patient that he can not safely be disconnecting and reconnecting and to use his call light to get up. He is currently refusing IVF and has gotten up using walker to ambulate to bathroom with out calling out for assistance. Bed alarm is on however patient has been shutting it off, fall risk bracelet and non slip socks in place. This nurse will continue to educate. Room is clean and clutter free with call light in place. Will continue to monitor.
[2022-10-22] MEDS: aspirin 81 mg EC Tablet PO (08:31)
[2022-10-22] MEDS: clopidogrel 75 mg Tablet PO (08:31)
--- NOTE | 2022-10-22 08:49 | PC.CHAP ---
Pastoral Care Encounter/Spiritual Assessment Type of Contact [] Declined buckle inspector visit [] Patient/Family/Request visit [] Outpatient visit [] Follow-up visit [] Physician referral [] Code/Alert [x] Routine visit [] Staff referral [] Actively dying [] Patient sleeping [] Family support [] [] Out of room [] Palliative care [] [] Receiving care in room [] Pre-surgical visit [] Trauma [] Long length of stay [] ICU visit [] Other: Relational/Emotional Strength [x] Patient feels connected with others/family/visitors/staff [] Distress [] Loneliness/isolation [] Abandonment Spirituality of Patient [x] Person of Miryam [] Attends Mandaen of their Miryam [x] Believes in Prayer [] Reads Bible or Presybeterian materials [] There are Spiritual issues to be addressed Voice Network Engineer Interventions [x] Prayer [x] Active listening [x] Non-anxious presence [x] Spiritual/emotional support [] Crisis/trauma care [] Spiritual counseling [] Bereavement support [] Provided bereavement packet [] Provided Bible/devotional materials [] Provided toy/stuffed animal, coloring book to patient or family member [] Provided Communion [] Anointing/[place] [] Salvation [x] Completed spiritual assessment [] Other: Impact on Illness or Injury [] Angry [] Fearful [] Anxious [] Often cries [] Exhaustion [] Unable to work [] Unable to attend episcopalian [] Unable to walk/stand [] Unable to read [] Unable to drive [] Unable to eat/drink [] Unable to sleep [] Unable to be with family [] Patient intubated [] Other: Summary Pt has large family that has been checking in on him while he has been in the hospital. Time spent with patient 10m
--- NOTE | 2022-10-22 10:12 | P.DS_ITS ---
Discharge Providers Date of Admission: 10/21/22 14:49 Date of Discharge: October 22, 2022 Attending Provider at Admission: Quan Cote MD Attending Provider at Discharge: Quan Cote MD Diagnoses at Discharge Discharge Diagnosis (1) CVA (cerebral vascular accident): Status: Acute (2) Left renal mass: Status: Acute Permanent problem details: 2.5 cm left renal mass discovered coincidentally on chest CT scan. On follow-up CT scan showed heterogeneity consistent with RCCA, Treated with Sada hernandez (3) Sinus bradycardia: Status: Acute Reason for Visit Reason for Visit: Stroke like symptoms Hospital Course Hospital Course Reginald is a 67-year-old white male who presented to the emergency department with slurred speech, word finding difficulty, some imbalance. He was not a tPA candidate. CTA performed demonstrated no obvious thrombus. CT head demonstrated subtle decreased attenuation left posterior temporal lobe cortex consistent with acute ischemia. EKG demonstrated sinus bradycardia. He was placed in the hospital, rehabilitation initiated, statin, Plavix, aspirin initiated. The following day he was able to get up with physical therapy, and did quite well. He was able to eat a minced and moist diet without difficulty per speech therapy. It was thought he could be discharged home with outpatient/home health physical therapy and speech therapy and follow-up with his primary care provider, neurology, and cardiology. I briefly discussed this case with his primary cardiology and an event monitor will be placed at discharge. Echocardiogram was also performed which demonstrated no obvious thrombus, preserved EF. Stroke education was given to as well as patient. They were given an opportunity to ask questions, and agreed with the plan. Telemetry in the hospital demonstrated no atrial fibrillation. Sinus bradycardia noted with rest, with heart rate as low as 40. This increased appropriately with any exertion or awake state. He improved quicker than expected and therefore did not have to stay 2 midnights. Physical Exam Narrative: General exam no distress Neck is supple no lymphadenopathy thyromegaly Cardiovascular regular rate bradycardic, no murmur Lungs clear Abdomen is soft positive bowel sounds Extremities no cyanosis clubbing or edema Neuro: Slight clumsiness right hand. Right facial droop noted. Slurred speech and some word finding difficulty. Ambulating without assistance. Discharge Data Studies Completed and Pending Completed Studies During Hospitalization Category Date Time Status CT head thrombolytic 92200 Stat Cat Scan 10/21/22 09:40 Completed CTA head neck [CT angio headneck* [id number]] Stat Cat Scan 10/21/22 12:19 Completed CV. echo complete* [id number] Routine Ultrasound 10/21/22 16:00 Completed Radiology Impressions Head CT 10/21/22 09:40 IMPRESSION: There is very subtle decreased attenuation in the left posterior temporal lobe cortex suggestive of acute ischemia. No sign of hemorrhage. Notified Kian Gonzalez DO at 10/21/2022 10:07 AM. Head/Neck CTA 10/21/22 12:19 IMPRESSION: No large vessel stenosis or occlusion. IMPRESSION: No stenosis or occlusion. REFERENCES: NASCET CRITERIA. The degree of stenosis in the cervical segment of the internal carotid artery is based on NASCET criteria. Normal is no stenosis. Mild is less than 50% stenosis. Moderate is 50-69% stenosis. Severe is 70% to 99% stenosis. Total occlusion is no detectable patent lumen. Laboratory Results WBC 7.4 10^3/uL (4.0-10.0) 10/21/22 09:58 RBC 4.68 10^6/uL (4.1-5.3) 10/21/22 09:58 Hgb 14.4 g/dL (11.7-16.6) 10/21/22 09:58 Hct 44.2 % (42.0-52.0) 10/21/22 09:58 MCV 94.4 fl (80-94) H 10/21/22 09:58 MCH 30.8 pg (28.0-34.0) 10/21/22 09:58 MCHC 32.6 g/dL (30.0-36.0) 10/21/22 09:58 RDW 12.4 % (12.1-15.1) 10/21/22 09:58 Plt Count 253 10^3/cmm (130-400) 10/21/22 09:58 MPV 9.6 fL (7.4-10.4) 10/21/22 09:58 Neut % (Auto) 62.7 % 10/21/22 09:58 Lymph % (Auto) 23.8 % 10/21/22 09:58 [place] % (Auto) 10.1 % 10/21/22 09:58 Eos % (Auto) 2.4 % 10/21/22 09:58 Baso % (Auto) 0.7 % 10/21/22 09:58 Neut # (Auto) 4.65 10^3/uL (1.8-7.7) 10/21/22 09:58 Lymph # (Auto) 1.8 10^3/uL (0.8-4.8) 10/21/22 09:58 [place] # (Auto) 0.8 10^3/uL (0.2-0.9) 10/21/22 09:58 Eos # (Auto) 0.2 10^3/uL (0.0-0.8) 10/21/22 09:58 Baso # (Auto) 0.1 10^3/uL (0.0-0.1) 10/21/22 09:58 Nucleated RBC % (auto) 0 % 10/21/22 09:58 Nucleated RBCs # 0.0 /100WBC 10/21/22 09:58 PT 14.40 SECONDS (12.1-14.9) 10/21/22 09:58 INR 1.09 (0.8-1.2) 10/21/22 09:58 APTT 26.1 SECONDS (23.9-36.7) 10/21/22 09:58 Sodium 137 mmol/L (136-145) 10/21/22 09:58 Potassium 4.2 mmol/L (3.5-5.1) 10/21/22 09:58 Chloride 106 mmol/L (98-107) 10/21/22 09:58 Carbon Dioxide 22 mmol/L (22-29) 10/21/22 09:58 Anion Gap 13.2 (5-19) 10/21/22 09:58 BUN 11 mg/dL (8-23) 10/21/22 09:58 Creatinine 0.8 mg/dL (0.7-1.2) 10/21/22 09:58 GFR Calculation 97.0 mL/min (90-130) 10/21/22 09:58 Glucose 93 mg/dL (65-115) 10/21/22 09:58 POC Glucose 128 mg/dL (70-110) H 10/21/22 16:55 Estimat Average Glucose 108 10/22/22 04:11 Hemoglobin A1c 5.4 % (4.0-6.0) 10/22/22 04:11 Calculated Osmolality 283 mOsm/kg (285-295) L 10/21/22 09:58 Calcium 9.4 mg/dL (8.5-10.5) 10/21/22 09:58 Total Bilirubin 0.6 mg/dL (0.15-1.2) 10/21/22 09:58 AST 13 U/L (0-40) 10/21/22 09:58 ALT 12 U/L (0-41) 10/21/22 09:58 Alkaline Phosphatase 47 U/L (40-130) 10/21/22 09:58 Total Protein 6.7 g/dL (6.6-8.7) 10/21/22 09:58 Albumin 4.0 g/dL (3.5-5.2) 10/21/22 09:58 Globulin 2.7 g/dL (1.3-4.6) 10/21/22 09:58 Triglycerides 197 mg/dL (0-150) H 10/22/22 04:11 Cholesterol 248 mg/dL (0-200) H 10/22/22 04:11 LDL Cholesterol, Calc 175 mg/dL (50-129) H 10/22/22 04:11 HDL Cholesterol 34 mg/dL (60-100) L 10/22/22 04:11 LDL/HDL Ratio 5.15 RATIO (0.00-3.22) H 10/22/22 04:11 Cholesterol/HDL Ratio 7.29 mg/dL (1.0-5.00) H 10/22/22 04:11 TSH 3.13 uIU/mL (0.27-4.20) 10/21/22 09:58 Urine Color Yellow (Yellow) 10/21/22 09:58 Urine Appearance Clear (CLEAR) 10/21/22 09:58 Urine pH 6 (5-7) 10/21/22 09:58 Ur Specific [place] 1.015 (1.005-1.030) 10/21/22 09:58 Urine Protein Neg (Negative) 10/21/22 09:58 Urine Glucose (UA) Norm (Normal) 10/21/22 09:58 Urine Ketones Negative (Negative) 10/21/22 09:58 Urine Blood Neg (Negative) 10/21/22 09:58 Urine Nitrate Negative (Negative) 10/21/22 09:58 Urine Bilirubin Neg (Negative) 10/21/22 09:58 Urine Urobilinogen Norm mg/dL (Negative) 10/21/22 09:58 Ur Leukocyte Esterase Negative (Negative) 10/21/22 09:58 Urine Opiates Screen Negative ng/mL (Negative) 10/21/22 09:58 Ur Barbiturates Screen Negative ng/mL (Negative) 10/21/22 09:58 Ur Phencyclidine Scrn Negative ng/mL (Negative) 10/21/22 09:58 Ur Amphetamines Screen Negative ng/mL (Negative) 10/21/22 09:58 U Benzodiazepines Scrn Negative ng/mL (Negative) 10/21/22 09:58 Urine Cocaine Screen Negative ng/mL (Negative) 10/21/22 09:58 U Marijuana (THC) Screen Negative ng/mL (Negative) 10/21/22 09:58 Vitals Last Vital Signs Temp 98.2 F 10/22/22 07:21 Pulse 54 L 10/22/22 07:21 Resp 16 10/22/22 07:21 BP 133/75 10/22/22 07:21 Pulse Ox 96 10/22/22 07:21 O2 Del Method 10/22/22 03:58 Discharge Plan Discharge Patient Disposition: Home Health Service Condition: Stable Prescriptions: New atorvastatin 40 mg Tablet 80 mg PO BEDTIME Qty: 60 0RF clopidogrel 75 mg Tablet 75 mg PO DAILY Qty: 30 0RF Continued aspirin [Adult Low Dose Aspirin] 81 mg tablet,delayed release (DR/EC) 81 mg PO .ONCE Tylenol Ex Str Rapid Release 500 mg Tablet 1,000 mg PO Q6H PRN (Reason: Pain) Protonix 40 mg tablet,delayed release (DR/EC) 40 mg PO DAILY PRN (Reason: Acid Reflux) Discontinued ibuprofen 200 mg Tablet 400 mg PO Q6H PRN (Reason: Pain) Discharge Orders: Discharge Order (Routine); Ordered 10/22/22 Ordered By: Quan Cote Other Ambulatory Orders: MCT/Event Monitor 21 Days (Routine) Timeframe: 1 Day Facility: [facility] - Location: Radiology Ordered By: Quan Cote Physical Therapy Eval and Treat Outpatient (Order) Timeframe: 2 Days Facility: [facility] - Location: Physical Therapy Ordered By: Quan Cote Speech Language Pathology Eval and Treat Outpatient ( DIRECTED) Timeframe: 20221024 Facility: [facility] - Location: PT [facility] Ordered By: Quan Cote Referrals: Ruchi Abraham MD [Physician] - 2 weeks (CVA) Dawood Vidales M.D [Physician] - 1 month (Follow-up 3 to 4 weeks, CVA, arrhythmia, event monitor) Discharge Diet: Cardiac Discharge Activity: Increase activity as tolerated Patient Instructions: Opioid Safety Activity Restrictions/Additional Instructions: Please arrange follow-up with primary care provider 3 to 5 days Follow-up with neurology 2 weeks Follow-up cardiology, Dr. Vidales 3 weeks Patient's Health Concerns: Weakness Assessment: CVA Plan of Treatment: Aspirin, Plavix, statin. Cardiology and endocrinology follow-up. Discharge Attestations Time Spent in Discharge Care*: greater than 30 min Quality Metrics Clinical Quality Measures [ Cerebrovascular Accident { Contraindication to Antithrombotic: None; antithrombotic prescribed; Contraindication to Anticoagulation: Other (Not indicated); Contraindication to Statin: None; Statin prescribed; Contraindication to tPA: Treatment not indicated; Reason stroke education not provided: Stroke education provided to patient;}] Coding Level of Care Code Acute Chg FW DC note Diagnoses CVA (cerebral vascular accident) I63.9 Left renal mass N28.89 Sinus bradycardia R00.1
[2022-10-22 10:34] VITALS: BP 133/75; PULSE 54; RESP 16; TEMP 36.8; O2SAT 96
[2022-10-22 12:00] VITALS: BP 133/75; PULSE 54; RESP 16; TEMP 36.8
== END 2022-10-22 14:02 | disposition home or self-care (01) | DRG 66 ==
LOC: ER 13:36 → MEDSURG 14:50
PROVIDERS: Admitting Provider Internal Medicine; Emergency Provider Family Medicine; Visit Provider Internal Medicine
DX: I63.9 Cerebral infarction, unspecified (principal); R29.810 Facial weakness; R27.0 Ataxia, unspecified; R47.81 Slurred speech; R29.703 NIHSS score 3; R00.1 Bradycardia, unspecified; Z79.82 Long term (current) use of aspirin; G89.29 Other chronic pain; M25.511 Pain in right shoulder; K21.9 Gastro-esophageal reflux disease without esophagitis; E03.9 Hypothyroidism, unspecified; F17.220 Nicotine dependence, chewing tobacco, uncomplicated
CPT/HCPCS: 36416; 70450; 70496; 70498; 80053; 80061; 80306; 81003; 82962; 83036; 84443; 85025; 85610; 85730; 92507; 92523; 92610; 93005; 93306; 96372; 97116; 97161; 97165; 99285; J1650; J7030; Q9967

== ENCOUNTER → 2022-10-23 12:40 | Outpatient (BNVA) | payer MEDICARE, SELFPAY | PROVIDERS: PCP Nurse Practitioner; Visit Provider Internal Medicine | DX: R00.1 Bradycardia, unspecified (principal); R00.0 Tachycardia, unspecified | CPT/HCPCS: 93270 ==

== ENCOUNTER → 2022-10-29 10:59 | Outpatient (BNVA) | payer MEDICARE, SELFPAY | PROVIDERS: PCP Nurse Practitioner; Visit Provider Specialist | DX: Z86.73 Personal history of transient ischemic attack (TIA), and cerebral infarction without residual deficits (principal); Z53.21 Procedure and treatment not carried out due to patient leaving prior to being seen by health care provider | CPT/HCPCS: G0463 ==

== ENCOUNTER 2022-11-04 06:00 | Outpatient (RCR) | payer MEDICARE, SELFPAY | END 2022-11-15 23:59 | disposition home or self-care (01) | LOC: WR3 06:00 | PROVIDERS: PCP Nurse Practitioner; Visit Provider Nurse Practitioner | DX: I63.9 Cerebral infarction, unspecified (principal) | CPT/HCPCS: 92523; 97110; 97161 ==

== ENCOUNTER → 2022-11-19 12:04 | Outpatient (BNVA) | payer MEDICARE, SELFPAY | PROVIDERS: PCP Nurse Practitioner; Visit Provider Family Medicine | DX: I63.512 Cerebral infarction due to unspecified occlusion or stenosis of left middle cerebral artery (principal); R00.1 Bradycardia, unspecified; Z79.899 Other long term (current) drug therapy; R47.81 Slurred speech; R53.83 Other fatigue | CPT/HCPCS: 80053; 82607; 82746; 84154; 84443; 85025 ==

== ENCOUNTER → 2022-11-27 13:21 | Outpatient (BNVA) | payer MEDICARE, SELFPAY | PROVIDERS: PCP Nurse Practitioner; Visit Provider Internal Medicine | DX: R00.1 Bradycardia, unspecified (principal); Z86.73 Personal history of transient ischemic attack (TIA), and cerebral infarction without residual deficits; F17.220 Nicotine dependence, chewing tobacco, uncomplicated | CPT/HCPCS: 99214 ==

== ENCOUNTER → 2023-05-12 16:14 | Outpatient (BNVA) | payer MEDICARE, SELFPAY | PROVIDERS: PCP Nurse Practitioner; Visit Provider Nurse Practitioner | DX: E03.9 Hypothyroidism, unspecified (principal); Z79.899 Other long term (current) drug therapy | CPT/HCPCS: 80053; 84443; 85025 ==

== ENCOUNTER → 2023-06-09 14:34 | Outpatient (BNVA) | payer MEDICARE, SELFPAY | PROVIDERS: PCP Nurse Practitioner; Visit Provider Nurse Practitioner | DX: K92.1 Melena (principal); I48.91 Unspecified atrial fibrillation; R53.83 Other fatigue | CPT/HCPCS: 85025 ==

== ENCOUNTER → 2023-07-10 11:10 | Outpatient (BNVA) | payer MEDICARE, SELFPAY | PROVIDERS: PCP Nurse Practitioner; Visit Provider Internal Medicine | DX: R00.1 Bradycardia, unspecified (principal); Z86.73 Personal history of transient ischemic attack (TIA), and cerebral infarction without residual deficits; F17.220 Nicotine dependence, chewing tobacco, uncomplicated | CPT/HCPCS: 99214 ==

== ENCOUNTER → 2025-07-04 11:41 | Outpatient (BNVA) | payer MEDICARE, SELFPAY | PROVIDERS: Family Provider Nurse Practitioner Family; PCP Nurse Practitioner Family; Visit Provider Nurse Practitioner Family | DX: C19 Malignant neoplasm of rectosigmoid junction (principal); D49.0 Neoplasm of unspecified behavior of digestive system; R53.83 Other fatigue; I49.9 Cardiac arrhythmia, unspecified | CPT/HCPCS: 82728; 83550; 85025 ==

== ENCOUNTER → 2025-07-31 08:52 | Outpatient (BNVA) | payer MEDICARE, SELFPAY | PROVIDERS: Family Provider Nurse Practitioner Family; PCP Nurse Practitioner Family; Visit Provider Nurse Practitioner Family | DX: C19 Malignant neoplasm of rectosigmoid junction (principal); D64.9 Anemia, unspecified; I49.9 Cardiac arrhythmia, unspecified | CPT/HCPCS: 83540; 85025 ==

== ENCOUNTER → 2025-08-30 16:27 | Outpatient (BNVA) | payer MEDICARE, SELFPAY | PROVIDERS: Family Provider Nurse Practitioner Family; PCP Nurse Practitioner Family; Visit Provider Nurse Practitioner Family | DX: R30.0 Dysuria (principal) | CPT/HCPCS: 81003; 87086 ==